=== PATIENT | female | born 1950 | race Caucasian/White ===

== ENCOUNTER 2020-03-08 14:17 | Outpatient (REF) | payer OTHER, SELFPAY | END 2020-03-08 14:18 | disposition home or self-care (01) | LOC: HO.LNP 14:17 | PROVIDERS: Visit Provider Internal Medicine Medical Oncology | DX: T14.8XXA Other injury of unspecified body region, initial encounter (principal) | CPT/HCPCS: 87071; 87205 ==

== ENCOUNTER 2020-09-19 08:03 | Outpatient (REF) | payer OTHER, SELFPAY ==
[2020-09-19 08:53] LABS: MANUAL DIFF FLAG NO
[2020-09-19 09:04] LABS: Basophils Absolute Auto 0.1 X10*3/uL (0.0-0.2); Basophils Percent Auto 0.8 % (0-2); Eosinophils Absolute Auto 0.4 X10*3/uL (0.0-0.4); Eosinophils Percent Auto 4.9 % (0-4); Hematocrit 39.3 % (37-47); Hemoglobin 12.8 g/dl (12.0-16.0); Imm Gran Abs Auto 0.03 X10*3/uL (0.00-0.03); Imm Gran Pct Auto 0.4 % (0.0-0.4); Lymphocytes Absolute Auto 2.3 X10*3/uL (1.2-4.9); Lymphocytes Percent Auto 30.3 % (20-40); Mean Corpuscular HGB Conc 32.6 g/dl (31.0-35.0); Mean Corpuscular Hemoglobin 30.8 pg (27.0-33.0); Mean Corpuscular Volume 94.7 fL (80-98); Mean Platelet Volume 11.1 fL (9.4-12.3); Monocytes Absolute Auto 0.5 X10*3/uL (0.1-1.2); Monocytes Percent Auto 6.4 % (2-11); Neutrophils Absolute Auto 4.3 X10*3/uL (2.0-8.3); Neutrophils Percent Auto 57.2 % (45-73); Platelet Count 238 X10*3/uL (160-400); Red Blood Count 4.15 X10*6/uL (4.20-5.50); Red Cell Distribution Width 13.4 % (11.0-16.0); White Blood Count 7.5 X10*3/uL (4.8-10.8)
[2020-09-19 09:23] LABS: Alanine Aminotransferase 32 U/L (0-31); Alkaline Phosphatase 85 U/L (39-117); Anion Gap 15 (12-20); Aspartate Amino Transferase 25 U/L (5-31); Bilirubin Total 0.5 mg/dL (0.0-1.0); Blood Urea Nitrogen 14 mg/dL (9-16); Calcium 8.9 mg/dL (8.4-10.2); Carbon Dioxide 25 mmol/L (22-29); Chloride 109 mmol/L (96-108); Cholesterol 220 mg/dL; Estimated Glomerular Filt Rate > 60; Glucose Fasting 123 mg/dL (60-99); HDL Cholesterol 64 mg/dL; LDL Cholesterol Calculated 138 mg/dl; Potassium 4.7 mmol/L (3.3-5.1); Sodium 144 mmol/L (135-145); Total Protein 6.1 g/dL (6.5-8.0); Triglycerides 93 mg/dL
== END 2020-09-19 08:04 | disposition home or self-care (01) ==
LOC: HO.LAB 08:03
PROVIDERS: PCP Internal Medicine Medical Oncology; Visit Provider Internal Medicine Medical Oncology
DX: M81.0 Age-related osteoporosis without current pathological fracture (principal); I10 Essential (primary) hypertension; E78.5 Hyperlipidemia, unspecified; Z78.0 Asymptomatic menopausal state
CPT/HCPCS: 36415; 80053; 80061; 85025

== ENCOUNTER 2020-10-10 10:38 | Outpatient (REF) | payer OTHER, SELFPAY ==
--- NOTE | ~2020-10-10 | XR_ITS ---
EXAMINATION: XR HIP, LEFT CLINICAL INFORMATION: Left hip pain. COMPARISON: None TECHNIQUE: AP view the pelvis as well as AP and frog-leg lateral views of the left hip. FINDINGS: No acute fracture or dislocation. Tiny right and left hip marginal osteophytes. Mild degenerative arthritis at the symphysis pubis. Phleboliths within the pelvis. No osseous erosion. XR/XR hip LT w PEL1V IMPRESSION: Minimal bilateral hip osteoarthritis.
== END 2020-10-10 10:39 | disposition home or self-care (01) ==
LOC: HO.XRAY 10:38
PROVIDERS: PCP Internal Medicine Medical Oncology; Visit Provider Internal Medicine Medical Oncology
DX: M25.552 Pain in left hip (principal); R10.2 Pelvic and perineal pain
CPT/HCPCS: 73502

== ENCOUNTER 2020-10-17 14:48 | Outpatient (REF) | payer OTHER, SELFPAY | END 2020-10-17 14:49 | disposition home or self-care (01) | LOC: HO.MRI 14:48 | PROVIDERS: PCP Internal Medicine Medical Oncology; Visit Provider Internal Medicine Medical Oncology | DX: Z13.89 Encounter for screening for other disorder (principal) ==

== ENCOUNTER → 2020-11-30 09:59 | Outpatient (BNVA) | payer OTHER, SELFPAY | PROVIDERS: Visit Provider Orthopaedic Surgery ==

== ENCOUNTER 2021-01-29 08:37 | Outpatient (REF) | payer MEDICARE, OTHER, SELFPAY ==
--- NOTE | ~2021-01-29 | XR_ITS ---
EXAMINATION: XR FOOT, RIGHT CLINICAL INFORMATION: Right foot pain COMPARISON: None TECHNIQUE: AP, lateral, and oblique views of the right foot. FINDINGS: No fracture or dislocation. Mild hypertrophic spurring at the Achilles insertion to the calcaneus. The bones appear osteopenic. Mild joint space narrowing at the first metatarsophalangeal joint with small osteophytes. No ankle joint effusion. The soft tissues appear unremarkable. XR/XR foot RT min 3V IMPRESSION: Osteopenia. Mild degenerative change at the first metatarsophalangeal joint.
[2021-01-29 08:55] LABS: MANUAL DIFF FLAG NO
[2021-01-29 09:10] LABS: Basophils Absolute Auto 0.1 X10*3/uL (0.0-0.2); Basophils Percent Auto 0.9 % (0-2); Eosinophils Absolute Auto 0.2 X10*3/uL (0.0-0.4); Eosinophils Percent Auto 3.5 % (0-4); Hematocrit 39.9 % (37.0-47.0); Hemoglobin 13.1 g/dl (12.0-16.0); Imm Gran Abs Auto 0.03 X10*3/uL (0.00-0.03); Imm Gran Pct Auto 0.4 % (0.0-0.4); Lymphocytes Absolute Auto 1.8 X10*3/uL (1.2-4.9); Lymphocytes Percent Auto 26.1 % (20-40); Mean Corpuscular HGB Conc 32.8 g/dl (31.0-35.0); Mean Corpuscular Hemoglobin 31.4 pg (27.0-33.0); Mean Corpuscular Volume 95.7 fL (80.0-98.0); Mean Platelet Volume 10.7 fL (9.4-12.3); Monocytes Absolute Auto 0.5 X10*3/uL (0.1-1.2); Monocytes Percent Auto 7.6 % (2-11); Neutrophils Absolute Auto 4.26 x10*3/uL (2.0-8.3); Neutrophils Percent Auto 61.5 % (45-73); Platelet Count 236 X10*3/uL (160-400); Red Blood Count 4.17 X10*6/uL (4.20-5.50); Red Cell Distribution Width 13.2 % (11.0-16.0); White Blood Count 6.9 X10*3/uL (4.8-10.8)
[2021-01-29 09:41] LABS: Alanine Aminotransferase 27 U/L (0-31); Albumin Level 4.1 g/dL (3.5-5.0); Alkaline Phosphatase 76 U/L (39-117); Anion Gap 11 (12-20); Aspartate Amino Transferase 20 U/L (5-31); Bilirubin Total 0.6 mg/dL (0.0-1.0); Blood Urea Nitrogen 15 mg/dL (9-16); Calcium 8.9 mg/dL (8.4-10.2); Carbon Dioxide 30 mmol/L (22-29); Chloride 106 mmol/L (96-108); Cholesterol 256 mg/dL; Estimated Glomerular Filt Rate > 60; Glucose Fasting 125 mg/dL (60-99); HDL Cholesterol 67 mg/dL; LDL Cholesterol Calculated 167 mg/dl; Potassium 4.3 mmol/L (3.3-5.1); Sodium 143 mmol/L (135-145); Total Protein 6.2 g/dL (6.5-8.0); Triglycerides 111 mg/dL
[2021-01-29 10:03] LABS: Free T4 (Free Thyroxine) 0.86 ng/dL (0.71-1.85); Thyroid Stimulating Hormone 1.33 uIU/mL (0.32-4.0)
[2021-01-29 10:26] LABS: Folate > 20.0 ng/mL (> or = 4.0); Vitamin B12 678 pg/mL (200-900)
== END 2021-01-29 08:38 | disposition home or self-care (01) ==
LOC: HO.XRAY 08:37
PROVIDERS: PCP Internal Medicine Medical Oncology; Visit Provider Internal Medicine Medical Oncology
DX: I10 Essential (primary) hypertension (principal); E78.5 Hyperlipidemia, unspecified; J45.20 Mild intermittent asthma, uncomplicated; M79.671 Pain in right foot; G11.9 Hereditary ataxia, unspecified
CPT/HCPCS: 36415; 73630; 80053; 80061; 82607; 82746; 84439; 84443; 85025

== ENCOUNTER 2021-08-14 08:16 | Outpatient (REF) | payer MEDICARE, OTHER, SELFPAY ==
[2021-08-14 08:33] LABS: MANUAL DIFF FLAG NO
[2021-08-14 08:56] LABS: Basophils Absolute Auto 0.1 X10*3/uL (0.0-0.2); Eosinophils Absolute Auto 0.3 X10*3/uL (0.0-0.4); Eosinophils Percent Auto 5.2 % (0-4); Hematocrit 40.6 % (37.0-47.0); Hemoglobin 12.9 g/dl (12.0-16.0); Imm Gran Abs Auto 0.03 X10*3/uL (0.00-0.03); Imm Gran Pct Auto 0.5 % (0.0-0.4); Lymphocytes Absolute Auto 1.7 X10*3/uL (1.2-4.9); Lymphocytes Percent Auto 28.3 % (20-40); Mean Corpuscular HGB Conc 31.8 g/dl (31.0-35.0); Mean Corpuscular Hemoglobin 30.9 pg (27.0-33.0); Mean Corpuscular Volume 97.4 fL (80.0-98.0); Mean Platelet Volume 10.9 fL (9.4-12.3); Monocytes Absolute Auto 0.4 X10*3/uL (0.1-1.2); Neutrophils Absolute Auto 3.6 x10*3/uL (2.0-8.3); Platelet Count 230 X10*3/uL (160-400); Red Blood Count 4.17 X10*6/uL (4.20-5.50); Red Cell Distribution Width 12.7 % (11.0-16.0); White Blood Count 6.2 X10*3/uL (4.8-10.8)
[2021-08-14 09:22] LABS: Alanine Aminotransferase 21 U/L (0-31); Alkaline Phosphatase 70 U/L (39-117); Anion Gap 11 (12-20); Aspartate Amino Transferase 17 U/L (5-31); Bilirubin Total 0.6 mg/dL (0.0-1.0); Blood Urea Nitrogen 15 mg/dL (9-16); Calcium 9.3 mg/dL (8.4-10.2); Carbon Dioxide 29 mmol/L (22-29); Chloride 107 mmol/L (96-108); Cholesterol 279 mg/dL; Estimated Glomerular Filt Rate > 60; Glucose Fasting 122 mg/dL (60-99); HDL Cholesterol 70 mg/dL; LDL Cholesterol Calculated 187 mg/dl; Potassium 4.6 mmol/L (3.3-5.1); Sodium 142 mmol/L (135-145); Total Protein 6.1 g/dL (6.5-8.0); Triglycerides 110 mg/dL
== END 2021-08-14 08:17 | disposition home or self-care (01) ==
LOC: HO.LAB 08:16
PROVIDERS: PCP Internal Medicine Medical Oncology; Visit Provider Internal Medicine Medical Oncology
DX: I10 Essential (primary) hypertension (principal); E66.9 Obesity, unspecified; E78.5 Hyperlipidemia, unspecified
CPT/HCPCS: 36415; 80053; 80061; 85025

== ENCOUNTER 2021-09-18 09:03 | Outpatient (REF) | payer MEDICARE, OTHER, SELFPAY ==
--- NOTE | ~2021-09-18 | MM_ITS ---
EXAMINATION: MM SCREENING DIGITAL BREAST TOMOSYNTHESIS, BILATERAL CLINICAL INFORMATION: Screening. Asymptomatic. The lifetime risk of breast cancer based on the Tyrer-Cuzick Model is 13%. COMPARISON: Outside mammography: 03/15/2020 ([facility]) TECHNIQUE: Digital breast tomosynthesis is performed in both the craniocaudal and mediolateral oblique views along with computer-aided detection (CAD). Synthesized 2D images are generated from the tomosynthesis. FINDINGS: The breasts are heterogeneously dense, which may obscure small masses (ACR BI-RADS breast composition Category c). Breast tissue composition borders on average fibroglandular. There is no significant mass or architectural abnormality or developing density. There are scattered benign punctate round calcifications. Left breast has interval loosely grouped relatively coarse calcifications mid upper outer quadrant. Patient will be recalled for additional imaging. The axilla and skin contours are unremarkable. MM/MM tomosynthesis screening BI IMPRESSION: Left: -Loosely grouped relatively coarse calcifications mid upper outer quadrant. Right: -No mammographic evidence of malignancy. ASSESSMENT: BI-RADS 0: Incomplete - Need Additional Imaging Evaluation RECOMMENDATION: 1. Additional views of the left breast (magnification CC, magnification ML). 2. Radiology department staff will contact the patient for additional imaging. This patient's information was entered into a reminder system with a target due date for their next mammogram.
== END 2021-09-18 09:04 | disposition home or self-care (01) ==
LOC: HO.MAMMO 09:03
PROVIDERS: PCP Internal Medicine Medical Oncology; Visit Provider Internal Medicine Medical Oncology
DX: Z12.31 Encounter for screening mammogram for malignant neoplasm of breast (principal)
CPT/HCPCS: 77063; 77067

== ENCOUNTER 2021-10-04 10:54 | Outpatient (REF) | payer MEDICARE, OTHER, SELFPAY ==
--- NOTE | ~2021-10-04 | MM_ITS ---
EXAMINATION: MM DIAGNOSTIC DIGITAL MAMMOGRAPHY, LEFT CLINICAL INFORMATION: Recall from screening for calcifications mid upper outer left breast. COMPARISON: Mammography: 09/18/2021, outside mammography 03/15/2020 ([facility]). TECHNIQUE: Digital mammography is performed in the following views: Magnification CC x2, magnification ML x2. FINDINGS: The breasts are heterogeneously dense, which may obscure small masses (ACR BI-RADS breast composition Category c). Additional magnification views show relatively coarse grouped calcifications mid upper outer left breast, possibly fibroadenomatous change. Management plan is for short interval follow-up left mammography to include magnification views in 6 months. Results are discussed with the patient at time of visit. MM/MM added views LT IMPRESSION: Probable benign relatively coarse grouped calcifications mid upper outer left breast, possibly fibroadenomatous change. ASSESSMENT: BI-RADS 3: Probably Benign RECOMMENDATION: Diagnostic left mammography in 6 months. This patient's information was entered into a reminder system with a target due date for their next mammogram.
== END 2021-10-04 10:55 | disposition home or self-care (01) ==
LOC: HO.MAMMO 10:54
PROVIDERS: Visit Provider Internal Medicine Medical Oncology
DX: R92.1 Mammographic calcification found on diagnostic imaging of breast (principal)
CPT/HCPCS: 77065

== ENCOUNTER 2021-10-09 08:06 | Outpatient (REF) | payer MEDICARE, OTHER, SELFPAY ==
[2021-10-09 08:23] LABS: MANUAL DIFF FLAG NO
[2021-10-09 09:03] LABS: Basophils Absolute Auto 0.1 X10*3/uL (0.0-0.2); Basophils Percent Auto 0.7 % (0-2); Eosinophils Absolute Auto 0.3 X10*3/uL (0.0-0.4); Eosinophils Percent Auto 4.6 % (0-4); Hematocrit 38.4 % (37.0-47.0); Hemoglobin 12.2 g/dl (12.0-16.0); Imm Gran Abs Auto 0.03 X10*3/uL (0.00-0.03); Imm Gran Pct Auto 0.4 % (0.0-0.4); Lymphocytes Absolute Auto 2.2 X10*3/uL (1.2-4.9); Mean Corpuscular HGB Conc 31.8 g/dl (31.0-35.0); Mean Corpuscular Hemoglobin 30.5 pg (27.0-33.0); Mean Platelet Volume 11.2 fL (9.4-12.3); Monocytes Absolute Auto 0.5 X10*3/uL (0.1-1.2); Monocytes Percent Auto 7.3 % (2-11); Neutrophils Absolute Auto 3.9 x10*3/uL (2.0-8.3); Platelet Count 214 X10*3/uL (160-400)
[2021-10-09 09:55] LABS: Alanine Aminotransferase 25 U/L (0-31); Albumin Level 3.9 g/dL (3.5-5.0); Alkaline Phosphatase 73 U/L (39-117); Anion Gap 10 (12-20); Aspartate Amino Transferase 18 U/L (5-31); Bilirubin Total 0.4 mg/dL (0.0-1.0); Blood Urea Nitrogen 14 mg/dL (9-16); Calcium 8.7 mg/dL (8.4-10.2); Carbon Dioxide 30 mmol/L (22-29); Chloride 106 mmol/L (96-108); Cholesterol 176 mg/dL; Estimated Glomerular Filt Rate > 60; Glucose Fasting 106 mg/dL (60-99); HDL Cholesterol 74 mg/dL; LDL Cholesterol Calculated 86 mg/dl; Potassium 4.3 mmol/L (3.3-5.1); Sodium 142 mmol/L (135-145); Total Protein 5.8 g/dL (6.5-8.0); Triglycerides 80 mg/dL
== END 2021-10-09 08:07 | disposition home or self-care (01) ==
LOC: HO.LAB 08:06
PROVIDERS: PCP Internal Medicine Medical Oncology; Visit Provider Internal Medicine Medical Oncology
DX: I10 Essential (primary) hypertension (principal); E78.5 Hyperlipidemia, unspecified; E66.9 Obesity, unspecified
CPT/HCPCS: 36415; 80053; 80061; 85025

== ENCOUNTER 2022-03-04 10:13 | Emergency (ER) | payer MEDICARE, OTHER, SELFPAY ==
--- NOTE | ~2022-03-04 | US_ITS ---
EXAMINATION: US VENOUS ULTRASOUND WITH DOPPLER LOWER EXTREMITY, LEFT CLINICAL INFORMATION: Left leg pain. COMPARISON: None TECHNIQUE: Ultrasound of the deep veins is performed from the hip to the calf with compression sonography and color and pulse Doppler assessment. Spectral analysis with color-flow imaging is performed. FINDINGS: There is normal venous compression and respiratory variation and augmented flow. The visualized common femoral vein, superficial femoral vein, profunda femoral vein, popliteal vein, and the trifurcation region shows no evidence of deep venous thrombosis. There is no significant popliteal fossa cyst. No Reynolds's cyst is seen. US/US venous duplex LE LT IMPRESSION: No DVT demonstrated in the left lower extremity.
--- NOTE | ~2022-03-04 | XR_ITS ---
EXAMINATION: XR KNEE, LEFT CLINICAL INFORMATION: Left knee pain COMPARISON: None TECHNIQUE: Four views of the left knee. FINDINGS: There is mild loss of patellofemoral compartment joint space. Medial and lateral compartment joint is preserved. There is anterior inferior patellar enthesophyte. No visible acute fracture, dislocation or subluxation seen. The soft tissues are normal. XR/XR knee LT 4V IMPRESSION: Mild degenerative changes patellofemoral compartment. No visible acute fracture or dislocation seen.
[2022-03-04 10:17] VITALS: BP 147/74; PULSE 76; RESP 18; TEMP 36.2; O2SAT 98; BMI 32.8
[2022-03-04 13:40] VITALS: BP 121/72; PULSE 73; RESP 16; O2SAT 99
--- NOTE | 2022-03-04 13:42 | ED_ITS ---
HPI - General Adult General Chief complaint: Extremity Injury, Lower <Mita Pena MD - Last Filed: 03/04/22 13:45> Stated complaint: l leg spasm pain <Mita Pena MD - Last Filed: 03/04/22 13:45> Time Seen by Provider: 03/04/22 14:18 <Mita Pena MD - Last Filed: 03/04/22 13:45> Source: patient <CELESTE Nicholson - Last Filed: 03/04/22 18:34> Mode of arrival: ambulatory <CELESTE Nicholson - Last Filed: 03/04/22 18:34> Limitations: no limitations <CELESTE Nicholson - Last Filed: 03/04/22 18:34> History of Present Illness HPI narrative: 71-year-old female presents to ED for left knee pain since . She states left knee pain radiating up thigh with tingling. Patient denies any swelling of the knee or lower extremity, recent trauma, ecchymosis, bluish/black discoloration, fever, chills, urinary/bowel incontinence, or inability to walk. Patient denies ever having any back pain. Patient denies any chest pain or shortness of breath. <CELESTE Nicholson - Last Filed: 03/04/22 18:34> Related Data Home medications: Home Medications Medication Instructions Recorded Confirmed lisinopril 2.5 mg tablet 2.5 mg PO DAILY 11/30/20 Previous Rx's Medication Instructions Recorded prednisone 20 mg tablet 40 mg PO DAILY 5 days #10 tabs 03/04/22 <Mita Pena MD - Last Filed: 03/04/22 13:45> Allergies/adverse reactions: Allergies Allergy/AdvReac Type Severity Reaction Status Date / Time furosemide [From LASIX] Allergy Mild RASH Verified 03/04/22 10:20 TAPE,PLASTIC Allergy Mild RASH Uncoded 03/04/22 10:20 <Mita Pena MD - Last Filed: 03/04/22 13:45> Review of Systems Review of Systems: left knee to left thigh pain <CELESTE Nicholson Last Filed: 03/04/22 18:34> Yes all other systems are reviewed and are negative <CELESTE Nicholson Last Filed: 03/04/22 18:34> [facility] Past Medical History Medical History: Medical History HTN (hypertension) <Mita Pena MD - Last Filed: 03/04/22 13:45> Social History Social History: Social History (Updated 11/30/20 @ 10:10 by VINICIO Myers) Alcohol intake: never Patient Tobacco Use Status: Never used Tobacco Advance Directives: No Advance Directives Information Provided: No Current occupational status: unemployed 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 <Mita Pena MD - Last Filed: 03/04/22 13:45> Physical Exam ED Vital Signs: Vital Signs - 24 hr 03/04/22 10:17 03/04/22 13:40 03/04/22 14:21 Temperature 97.1 F Pulse Rate 76 73 83 Respiratory Rate 18 16 20 Blood Pressure 147/74 H 121/72 117/76 Pulse Oximetry 98 99 97 Oxygen Delivery Method Room Air Room Air Room Air BMI result Body Mass Index 32.8 <Mita Pena MD - Last Filed: 03/04/22 13:45> Vital Signs - 24 hr 03/04/22 10:17 03/04/22 13:40 03/04/22 14:21 Temperature 97.1 F Pulse Rate 76 73 83 Respiratory Rate 18 16 20 Blood Pressure 147/74 H 121/72 117/76 Pulse Oximetry 98 99 97 Oxygen Delivery Method Room Air Room Air Room Air BMI result Body Mass Index 32.8 <CELESTE Nicholson - Last Filed: 03/04/22 18:34> Const General: cooperative, healthy appearing, comfortable, no acute distress, well developed, alert and awake <CELESTE Nicholson - Last Filed: 03/04/22 18:34> Orientation/consciousness: oriented to person, oriented to place, oriented to time and patient oriented x3 <CELESTE Nicholson Last Filed: 03/04/22 18:34> HENMT Head: Yes normal to inspection, Yes No palpable skull fracture present, Yes normocephalic, Yes atraumatic and No abrasion <CELESTE Nicholson Last Filed: 03/04/22 18:34> Eyes General: appearance normal, both eyes and all related structures <CELESTE Nicholson - Last Filed: 03/04/22 18:34> Neck Neck: Yes normal visual inspection, Yes full ROM, Yes no lymphadenopathy, Yes no meningeal signs, Yes trachea midline, Yes supple, No anterior neck swelling and No tender <CELESTE Nicholson Last Filed: 03/04/22 18:34> Chest Chest palpation & inspection: normal inspection of the chest and normal palpation of entire chest wall <CELESTE Nicholson Bull Last Filed: 03/04/22 18:34> Resp Effort & Inspection: normal respiratory effort and able to speak in complete sentences <CELESTE Nicholson Last Filed: 03/04/22 18:34> Auscultation: clear to auscultation bilaterally <CELESTE Nicholson Bull Last Filed: 03/04/22 18:34> Cardio Jugular venous distension: no JVD <CELESTE Nicholson Bull Last Filed: 03/04/22 18:34> Heart sounds: S1 normal heart sound present and S2 normal heart sound present <CELESTE Nicholson Last Filed: 03/04/22 18:34> GI Inspection: Yes normal to inspection and No abdominal wall ecchymosis <CELESTE Nicholson Bull Last Filed: 03/04/22 18:34> Palpation (GI): Soft to palpation, not firm, nontender, no guarding and not rigid <CELESTE Nicholson Last Filed: 03/04/22 18:34> General: No CVA tenderness and Yes no CVA tenderness <CELESTE Nicholson Bull Last Filed: 03/04/22 18:34> Back/Spine/Pelvis Back: no CVA tenderness, No CVA tenderness and No back tenderness <CELESTE Nicholson Last Filed: 03/04/22 18:34> Skin General skin exam: no rashes or lesions noted and elasticity normal <CELESTE Nicholson Bull Last Filed: 03/04/22 18:34> Neuro General: oriented to person, oriented to place, oriented to time, patient oriented x3, gait normal and no meningeal signs <CELESTE Nicholson Last Filed: 03/04/22 18:34> Cranial nerves: Yes CN's II-XII intact bilaterally <CELESTE Nicholson - Last Filed: 03/04/22 18:34> Extrem Other: Bilateral lower extremity motor/neuro/vascular exam intact. <CELESTE Nicholson Last Filed: 03/04/22 18:34> General: Yes normal to inspection and Yes full ROM <CELESTE Nicholson - Last Filed: 03/04/22 18:34> Knee images: 1. Positive for tenderness on palpation. Negative for erythema or stiffness. Popliteal pulses intact. Negative for cord on palpation of thigh. [id number] normal. Motor/neuro/vascular exam of lower extremities intact <Mita Pena MD - Last Filed: 03/04/22 13:45> 1. Positive for tenderness on palpation. Negative for erythema or stiffness. Popliteal pulses intact. Negative for cord on palpation of thigh. [id number] normal. Motor/neuro/vascular exam of lower extremities intact <CELESTE Nicholson - Last Filed: 03/04/22 18:34> Psych Appearance: grossly normal, well kempt and not disheveled <CELESTE Nicholson - Last Filed: 03/04/22 18:34> Course Course Course Narrative: 71F with atraumtic complaint of LLE pain that has been ongoing and had an appt with Dr Hoang. Pain gets better with Tylenol/Ibuprofen and she denies any fevers, chills, recent travel, falls. VS Reviewed GEN: Mild distress HEENT: NC/AT, EOMI/PERRLA, Ears wnl, throat wnl PULM: CTAB, no wheeze/rhonchi/rales CVS: RRR, no murmurs ABD: NT/ND Ext: no LEFT knee swelling or redness, no palpable cords - Labs, d-dimer <Mita Pena MD - Last Filed: 03/04/22 13:45> Reevaluation(s) Reevaluation #1: Knee x-ray shows arthritis. Ultrasound of lower extremity negative for DVT. Electrolytes normal. Negative for CPK rhabdomyolysis. History physical exam does not indicate cellulitis, arterial occlusion, compartment syndrome, fracture, or DVT. Patient already on Tylenol and Motrin. Will discharge with steroids. <CELESTE Nicholson Last Filed: 03/04/22 18:34> Time: 17:33 <CELESTE Nicholson Filed: 03/04/22 18:34> Medications Administered Discontinued Medications Generic Name Dose Route Start Last Admin Trade Name Freq PRN Reason Stop Dose Admin Acetaminophen 975 mg 03/04/22 13:40 03/04/22 13:43 Acetaminophen 325 Mg Tablet PO 03/04/22 13:41 975 mg ONCE ONE Administration Ibuprofen 400 mg 03/04/22 13:40 03/04/22 13:45 Ibuprofen 400 Mg Tablet PO 03/04/22 13:41 400 mg ONCE ONE Administration <Mita Pena MD - Last Filed: 03/04/22 13:45> Medications Administered Discontinued Medications Generic Name Dose Route Start Last Admin Trade Name Freq PRN Reason Stop Dose Admin Acetaminophen 975 mg 03/04/22 13:40 03/04/22 13:43 Acetaminophen 325 Mg Tablet PO 03/04/22 13:41 975 mg ONCE ONE Administration Ibuprofen 400 mg 03/04/22 13:40 03/04/22 13:45 Ibuprofen 400 Mg Tablet PO 03/04/22 13:41 400 mg ONCE ONE Administration <CELESTE Nicholson - Last Filed: 03/04/22 18:34> Medical Decision Making Medical Decision Making MDM Narrative: 8-year-old female with left knee and left thigh pain. Workup negative for DVT, knee fracture, rhabdomyolysis, or any electrolyte deficiency. History physical exam does not indicate cellulitis. Patient is safe for discharge. No need for admission. <CELESTE Nicholson - Last Filed: 03/04/22 18:34> Discharge Plan Discharge Clinical Impression: Arthritis <Mita Pena MD - Last Filed: 03/04/22 13:45> Patient Disposition: Home, Self-Care <Mita Pena MD - Last Filed: 03/04/22 13:45> Instructions: Osteoarthritis (ED), Arthritis (ED) <Mita Pena MD - Last Filed: 03/04/22 13:45> Additional Instructions: Your blood work, ultrasound, and x-ray came back negative for fracture, blood clot, rhabdomyolysis, or electrolyte deficiency. History physical exam does not indicate cellulitis or arterial occlusion. Will be discharged with steroids. Please follow-up with your primary care provider. Continue taking Tylenol Motrin and flexeril. Return to the ED immediately for swelling of lower extremity, bluish black discoloration, calf pain, leg swelling, hardness, coldness, chest pain, shortness of breath, fever, chills, or any other c oncerning symptoms. <Mita Pena MD - Last Filed: 03/04/22 13:45> Prescriptions: New prednisone 20 mg tablet 40 mg PO DAILY 5 Days Qty: 10 0RF <Mita Pena MD - Last Filed: 03/04/22 13:45> Referrals: Navid Ortiz MD [Primary Care Provider] - (Left knee arthritis.) <Mita Pena MD - Last Filed: 03/04/22 13:45> Print Language: Spanish <Mita Pena MD - Last Filed: 03/04/22 13:45>
[2022-03-04] MEDS: Acetaminophen 325 MG TABLET 975 MG PO (13:43)
[2022-03-04] MEDS: Ibuprofen 400 MG TABLET PO (13:45)
--- OUTSIDE RECORDS SUMMARY | 2022-03-04 14:17 | XMS_ITS | Continuity of Care Document ---
:1950 Author Organization [facility] Adult Address [address] [place] [address]- Care Team Providers Name Role Phone Inez Fowler NP Primary Care Physician Encounter [facility] Date(s): 11/08/19 - 12/08/19 [facility] Adult [address] [place] [phone] [facility] Allergies, Adverse Reactions, Alerts Substance Reaction Severity Status NKA Active Immunizations Given and Recorded Vaccine Date Status Refusal Reason tetanus/diphtheria/pertussis, acel(Tdap) 12/07/15 Given FluLaval (oldterm) 05/29/12 Given Medications Christal Allergy 60 mg oral tablet 1 tablet = 60 mg, By Mouth, 2 times a day, # 28 tablet, 0 Refills, Maintenance, 08/09/16 10:16:31, Tablet Start Date: 08/09/16 Stop Date: 08/23/16 Status: OrderedB-Plex Plus Vitamin B Complex oral tablet 1 tablet, By Mouth, Daily, # 100 tablet, 0 Refills, Maintenance, 11/10/13 13:50:50, Tablet Start Date: 11/10/13 Status: OrderedFlonase 50 mcg/inh nasal spray 1 sprays, Nares, Both, 2 times a day, # 1 each, 0 Refills, Maintenance, 08/09/16 10:16:58, [place], 1 sprays Nares, Both 2 times a day,x14 days Start Date: 08/09/16 Stop Date: 08/23/16 Status: Orderedibuprofen 800 mg oral tablet 800 mg, 1, tablet, By Mouth, 3 times a day, PRN, for 30 days, with food or milk, # 90 tablet, Refills 1, Tot. Refills 1, Acute 01/08/20 10:55:00 EDT, Pain, 11/09/19 10:55:00 EDT, Route to Pharmacy Electronically, [facility]/pharmacy #[id number], 162, cm, 05/13/19... Start Date: 11/09/19 Stop Date: 01/08/20 Status: Orderedketoconazole 2% topical cream 1 application, Topically, Daily, # 60 Gm, 1 Refills, Maintenance, 12/07/15 11:18:35, Cream, 1 application Topically Daily,x30 days Start Date: 12/07/15 Stop Date: 02/05/16 Status: Orderedlisinopril 40 mg oral tablet 1 tablet = 40 mg, By Mouth, Daily, # 90 tablet, 1 Refills, Maintenance, 11/19/19 9:32:00 EDT, Tablet, [facility]/pharmacy #[id number], 162, cm, 05/13/19 11:11:00 EST, Height Start Date: 11/19/19 Stop Date: 05/17/20 Status: OrderedpredniSONE 20 mg oral tablet 1 tablet = 20 mg, By Mouth, Daily, # 5 tablet, 0 Refills, Maintenance, 10/18/19 17:35:00 EDT, Tablet, [facility]/pharmacy #[id number], 162, cm, 05/13/19 11:11:00 EST, Height Start Date: 10/18/19 Stop Date: 10/23/19 Status: OrderedVitamin D3 1000 intl units oral capsule 1 capsule = 1,000 International_Units, By Mouth, Daily, # 100 capsule, 0 Refills, Maintenance, 11/10/13 13:50:36, Capsule Start Date: 11/10/13 Status: OrderedVitamin D3 50,000 intl units oral capsule 1 capsule = 50,000 International_Units, By Mouth, Every week, # 13 capsule, 3 Refills, Maintenance, 07/12/14 13:31:47, Capsule, 1 capsule By Mouth Every week,x90 days Start Date: 07/12/14 Stop Date: 07/07/15 Status: Ordered Problem List Condition Effective Dates Status Health Status Informant Acute gingivitis(Confirmed) Active Hypertension(Confirmed) Active Osteoarthritis of ankle or foot, Active right(Confirmed) Osteoarthritis of left hip(Confirmed) Active Social History Social History Type Response Smoking Status Never smoker entered on: 11/29/14 Sex
--- OUTSIDE RECORDS SUMMARY | 2022-03-04 14:17 | XMS_ITS | Continuity of Care Document ---
:1950 Author Organization [facility] Adult Address [address] [place] [address]- Care Team Providers Name Role Phone Inez Fowler NP Primary Care Physician Encounter [facility] Date(s): 06/23/20 - 07/23/20 [facility] [address] [place] [id number]- Attending Physician: Josh Lake Admitting Physician: AdmtrJosh Referring Physician: Admtr, [id number] Allergies, Adverse Reactions, Alerts Substance Reaction Severity Status NKA Active Immunizations Given and Recorded Vaccine Date Status Refusal Reason Influenza Virus Vaccine (oldterm)1 12/10/19 Recorded tetanus/diphtheria/pertussis, acel(Tdap) 12/07/15 Given FluLaval (oldterm) 05/29/12 Given 1Result Comment: received at [facility] Medications Christal Allergy 60 mg oral tablet [...] 1 each, 0 Refills, Maintenance, 08/09/16 10:16:58, [place], 1 sprays Nares, Both 2 times a day,x14 days Start Date: 08/09/16 Stop Date: 08/23/16 Status: Orderedketoconazole 2% topical cream 1 application, Topically, Daily, # 60 Gm, 1 Refills, Maintenance, 12/07/15 11:18:35, Cream, 1 application Topically Daily,x30 days Start Date: 12/07/15 Stop Date: 02/05/16 Status: Orderedlisinopril 40 mg oral tablet 1 tablet = 40 mg, By Mouth, Daily, # 90 tablet, 0 Refills, Maintenance, 05/18/20 13:09:00 EST, Tablet, [facility]/pharmacy #[id number], 162, cm, 05/13/19 11:11:00 EST, Height Start Date: 05/18/20 Stop Date: 08/16/20 Status: OrderedpredniSONE 20 mg oral tablet 1 tablet = 20 mg, By Mouth, Daily, # 5 tablet, 0 Refills, Maintenance, 10/18/19 17:35:00 EDT, Tablet, [facility]/pharmacy #[id number], 162, cm, 05/13/19 11:11:00 EST, Height [...]
--- OUTSIDE RECORDS SUMMARY | 2022-03-04 14:17 | XMS_ITS | Continuity of Care Document ---
:1950 Author Organization [facility] Adult Address [address] [place] [address]- Care Team Providers Name Role Phone Janeth LYNNE, Inez Primary Care Physician Encounter [facility] Date(s): 11/07/19 - 12/07/19 [facility] Adult [address] [place] [phone]- [facility] Allergies, Adverse Reactions, Alerts Substance [...] 1 each, 0 Refills, Maintenance, 08/09/16 10:16:58, [place], 1 sprays Nares, Both 2 times a day,x14 days Start Date: 08/09/16 Stop Date: 08/23/16 Status: Orderedibuprofen 800 mg oral tablet 800 mg, 1, tablet, By Mouth, 3 times a day, PRN, for 30 days, with food or milk, # 90 tablet, Refills 1, Tot. Refills 1, Acute 01/08/20 10:55:00 EDT, Pain, 11/09/19 10:55:00 EDT, Route to Pharmacy Electronically, [facility]/pharmacy #[id number], 162, cm, 05/13/19... Start Date: 11/09/19 Stop Date: 01/08/20 Status: Orderedketoconazole 2% topical cream 1 application, Topically, Daily, # 60 Gm, 1 Refills, Maintenance, 12/07/15 11:18:35, Cream, 1 application Topically Daily,x30 days Start Date: 12/07/15 Stop Date: 02/05/16 Status: Orderedlisinopril 40 mg oral tablet 1 tablet = 40 mg, By Mouth, Daily, # 90 tablet, 1 Refills, Maintenance, 11/19/19 9:32:00 EDT, Tablet, [facility]/pharmacy #[id number], 162, cm, 05/13/19 11:11:00 EST, Height Start Date: 11/19/19 Stop Date: 05/17/20 Status: OrderedpredniSONE 20 mg oral tablet 1 tablet = 20 mg, By Mouth, Daily, # 5 tablet, 0 Refills, Maintenance, 10/18/19 17:35:00 EDT, Tablet, [facility]/pharmacy #[id number], 162, cm, 05/13/19 11:11:00 EST, Height [...]
--- OUTSIDE RECORDS SUMMARY | 2022-03-04 14:17 | XMS_ITS | Continuity of Care Document ---
:1950 Author Organization [facility] Adult Address [address] [place] [address]- Care Team Providers Name Role Phone Inez Fowler NP Primary Care Physician Encounter [facility] Date(s): 07/17/19 - 11/12/19 [facility] Adult [address] [place] [phone] [facility] Attending Physician: Not on Staff, Attending MD Allergies, Adverse Reactions, Alerts Substance Reaction Severity [...] 1 each, 0 Refills, Maintenance, 08/09/16 10:16:58, [place], 1 sprays Nares, Both 2 times a day,x14 days Start Date: 08/09/16 Stop Date: 08/23/16 Status: Orderedibuprofen 800 mg oral tablet 800 mg, 1, tablet, By Mouth, 3 times a day, PRN, for 30 days, with food or milk, # 90 tablet, Refills 1, Tot. Refills 1, Acute 01/08/20 10:55:00 EDT, Pain, 11/09/19 10:55:00 EDT, Route to Pharmacy Electronically, [facility]/pharmacy #[id number], 162, cm, 05/13/19... Start Date: 11/09/19 Stop Date: 01/08/20 Status: Orderedketoconazole 2% topical cream 1 application, Topically, Daily, # 60 Gm, 1 Refills, Maintenance, 12/07/15 11:18:35, Cream, 1 application Topically Daily,x30 days Start Date: 12/07/15 Stop Date: 02/05/16 Status: Orderedlisinopril 40 mg oral tablet 1 tablet = 40 mg, By Mouth, Daily, # 90 tablet, 1 Refills, Maintenance, 05/16/19 15:38:00 EST, Tablet, [facility]/pharmacy #[id number], 162, cm, 05/13/19 11:11:00 EST, Height Start Date: 05/16/19 Stop Date: 11/12/19 Status: OrderedpredniSONE 20 mg oral tablet 1 tablet = 20 mg, By Mouth, Daily, # 5 tablet, 0 Refills, Maintenance, 10/18/19 17:35:00 EDT, Tablet, [facility]/pharmacy #[id number], 162, cm, 05/13/19 11:11:00 EST, Height [...]
--- OUTSIDE RECORDS SUMMARY | 2022-03-04 14:17 | XMS_ITS | Continuity of Care Document ---
:1950 Author Organization [facility] Adult Address [address] [place] [address]- Care Team Providers Name Role Phone Inez Fowler NP Primary Care Physician Encounter [facility] Date(s): 01/03/20 - 02/02/20 [facility] Adult [address] [place] [phone] [facility] Allergies, Adverse Reactions, Alerts Substance Reaction Severity Status NKA Active Immunizations Given and Recorded Vaccine Date Status Refusal Reason Influenza Virus Vaccine (oldterm)1 12/10/19 Recorded tetanus/diphtheria/pertussis, acel(Tdap) 12/07/15 Given FluLaval (oldterm) 05/29/12 Given 1Result Comment: received at [facility] Medications Christal Allergy 60 mg oral tablet [...] 1 each, 0 Refills, Maintenance, 08/09/16 10:16:58, [place], 1 sprays Nares, Both 2 times a [...] 1 Refills, Maintenance, 11/19/19 9:32:00 EDT, Tablet, [facility]/pharmacy #[id number], 162, cm, 05/13/19 11:11:00 EST, Height Start Date: 11/19/19 Stop Date: 05/17/20 Status: OrderedpredniSONE 20 mg oral tablet 1 tablet = 20 mg, By Mouth, Daily, # 5 tablet, 0 Refills, Maintenance, 10/18/19 17:35:00 EDT, Tablet, [facility]/pharmacy #[id number], 162, cm, 05/13/19 11:11:00 EST, Height [...]
--- OUTSIDE RECORDS SUMMARY | 2022-03-04 14:17 | XMS_ITS | Continuity of Care Document ---
:1950 Author Organization [facility] Adult Address [address] [place] [address]- Care Team Providers Name Role Phone Inez Fowler NP Primary Care Physician [place] [facility] [place] Date(s): 01/03/20 - 02/02/20 [facility] Adult [address] [place] [address]- [facility] Allergies, Adverse Reactions, Alerts Substance Reaction Severity Status NKA Active Immunizations Given and Recorded Vaccine Date Status Refusal Reason Influenza Virus Vaccine (oldterm)1 12/10/19 Recorded tetanus/diphtheria/pertussis, acel(Tdap) 12/07/15 Given FluLaval (oldterm) 05/29/12 Given 1Result Comment: received at [facility] Medications Christal Allergy 60 mg oral tablet [...] 1 each, 0 Refills, Maintenance, 08/09/16 10:16:58, [place], 1 sprays Nares, Both 2 times a [...] 1 Refills, Maintenance, 11/19/19 9:32:00 EDT, Tablet, [facility]/pharmacy #[id number], 162, cm, 05/13/19 11:11:00 EST, Height Start Date: 11/19/19 Stop Date: 05/17/20 Status: OrderedpredniSONE 20 mg oral tablet 1 tablet = 20 mg, By Mouth, Daily, # 5 tablet, 0 Refills, Maintenance, 10/18/19 17:35:00 EDT, Tablet, [facility]/pharmacy #[id number], 162, cm, 05/13/19 11:11:00 EST, Height [...]
--- OUTSIDE RECORDS SUMMARY | 2022-03-04 14:18 | XMS_ITS | Continuity of Care Document ---
:1950 Author Organization [facility] Adult Address [address] [place] [address]- Care Team Providers Name Role Phone Inez Fowler NP Primary Care Physician Encounter [facility] [place] Date(s): 05/13/19 - 05/20/19 [facility] Adult [address] [place] [address]- [facility] Attending Physician: Not [...] 1 each, 0 Refills, Maintenance, 08/09/16 10:16:58, [place], 1 sprays Nares, Both 2 times a day,x14 days Start Date: 08/09/16 Stop Date: 08/23/16 Status: Orderedibuprofen 800 mg oral tablet 800 mg, 1, tablet, By Mouth, 3 times a day, PRN, for 30 days, with food or milk, # 90 tablet, Refills 1, Tot. Refills 1, Acute 07/13/19 13:48:00 EDT, Pain, 05/14/19 13:48:00 EST, Route to Pharmacy Electronically, [facility]/pharmacy #[id number], 162, cm, 05/13/19... Start Date: 05/14/19 Stop Date: 07/13/19 Status: Orderedketoconazole 2% topical cream 1 application, Topically, Daily, # 60 Gm, 1 Refills, Maintenance, 12/07/15 11:18:35, Cream, 1 application Topically Daily,x30 days Start Date: 12/07/15 Stop Date: 02/05/16 Status: Orderedlisinopril 40 mg oral tablet 1 tablet = 40 mg, By Mouth, Daily, # 90 tablet, 1 Refills, Maintenance, 05/16/19 15:38:00 EST, Tablet, [facility]/pharmacy #[id number], 162, cm, 05/13/19 11:11:00 EST, Height Start Date: 05/16/19 Stop Date: 11/12/19 Status: OrderedVitamin D3 1000 intl units oral [...] Active right(Confirmed) Osteoarthritis of left hip(Confirmed) Active Vital Signs Most recent to oldest [Reference Range]: 1 Height 162.0 cm (05/13/19 11:11 AM) Weight 96.3 kg (05/13/19 11:11 AM) Oxygen Saturation [94-100 %] 98 % (05/13/19 11:11 AM) Pulse Rate [55-90 bpm] 99 bpm *H* (05/13/19 11:11 AM) Body Mass Index [18.5-24.99] 36.69 *>HHI* (05/13/19 11:11 AM) Blood Pressure [90-138/55-84 mm Hg] 130/62 mm Hg (05/13/19 11:11 AM) Blood pressure sites Arm, left (05/13/19 11:11 AM) Temperature Route Oral (05/13/19 11:11 AM) Weight Obtained Via Standing scale (05/13/19 11:11 AM) Social History Social History Type Response Smoking Status Never smoker entered on: 11/29/14 Sex
--- OUTSIDE RECORDS SUMMARY | 2022-03-04 14:18 | XMS_ITS | Continuity of Care Document ---
:1950 Author Organization [facility] Address [address] [place] [phone]- Care Team Providers Name Role Phone Janeth LYNNE, Inez Primary Care Physician [place] [facility] [place] 05/13/[address] [address]- [facility] Attending Physician: Not on Staff, Attending MD [...] 1 each, 0 Refills, Maintenance, 08/09/16 10:16:58, [place], 1 sprays Nares, Both 2 times a day,x14 days Start Date: 08/09/16 Stop Date: 08/23/16 Status: Orderedketoconazole 2% topical cream 1 application, Topically, Daily, # 60 Gm, 1 Refills, Maintenance, 12/07/15 11:18:35, [place], 1 application Topically Daily,x30 days Start Date: 12/07/15 Stop Date: 02/05/16 Status: Orderedlisinopril 20 mg oral tablet 20 mg, 1, tablet, By Mouth, Daily, # 30 tablet, Refills 5, Tot. Refills 5, Maintenance, 02/26/17 21:09:52, Route to Pharmacy Electronically, [id number], [facility] [id number] Start Date: 02/26/17 Stop Date: 08/25/17 Status: OrderedVitamin D3 1000 intl units oral [...]
--- OUTSIDE RECORDS SUMMARY | 2022-03-04 14:18 | XMS_ITS | Continuity of Care Document ---
:1950 Author Organization [facility] Adult Address [address] [place] [address]- Care Team Providers Name Role Phone Inez Fowler NP Primary Care Physician Encounter [facility] [place] Date(s): 11/01/19 - 12/01/19 [facility] Adult [address] [place] [phone]- [facility] Allergies, Adverse Reactions, Alerts Substance [...] 1 each, 0 Refills, Maintenance, 08/09/16 10:16:58, [place], 1 sprays Nares, Both 2 times a day,x14 days Start Date: 08/09/16 Stop Date: 08/23/16 Status: Orderedibuprofen 800 mg oral tablet 800 mg, 1, tablet, By Mouth, 3 times a day, PRN, for 30 days, with food or milk, # 90 tablet, Refills 1, Tot. Refills 1, Acute 01/08/20 10:55:00 EDT, Pain, 11/09/19 10:55:00 EDT, Route to Pharmacy Electronically, [facility]/pharmacy #[id number], 162, cm, 05/13/19... Start Date: 11/09/19 Stop Date: 01/08/20 Status: Orderedketoconazole 2% topical cream 1 application, Topically, Daily, # 60 Gm, 1 Refills, Maintenance, 12/07/15 11:18:35, [place], 1 application Topically Daily,x30 days Start Date: 12/07/15 Stop Date: 02/05/16 Status: Orderedlisinopril 40 mg oral tablet 1 tablet = 40 mg, By Mouth, Daily, # 90 tablet, 1 Refills, Maintenance, 11/19/19 9:32:00 EDT, Tablet, [facility]/pharmacy #[id number], 162, cm, 05/13/19 11:11:00 EST, Height Start Date: 11/19/19 Stop Date: 05/17/20 Status: OrderedpredniSONE 20 mg oral tablet 1 tablet = 20 mg, By Mouth, Daily, # 5 tablet, 0 Refills, Maintenance, 10/18/19 17:35:00 EDT, Tablet, [facility]/pharmacy #[id number], 162, cm, 05/13/19 11:11:00 EST, [...]
--- OUTSIDE RECORDS SUMMARY | 2022-03-04 14:18 | XMS_ITS | Continuity of Care Document ---
:1950 Author Organization [facility] Adult Address [address] [place] [address]- Care Team Providers Name Role Phone Inez Fowler NP Primary Care Physician Encounter [facility] [place] Date(s): 05/18/20 - 07/23/20 [facility] Adult [address] [place] [address]- Attending Physician: Inez Fowler NP Allergies, Adverse Reactions, Alerts Substance Reaction Severity Status NKA Active Immunizations Given and Recorded Vaccine Date Status Refusal Reason Influenza Virus Vaccine (oldterm)1 12/10/19 Recorded tetanus/diphtheria/pertussis, acel(Tdap) 12/07/15 Given FluLaval (oldterm) 05/29/12 Given 1Result Comment: received at [facility] Medications Christal Allergy 60 mg oral [...] 1 each, 0 Refills, Maintenance, 08/09/16 10:16:58, [place], 1 sprays Nares, Both 2 times a [...] 0 Refills, Maintenance, 05/18/20 13:09:00 EST, Tablet, [facility]/pharmacy #[id number], 162, cm, 05/13/19 11:11:00 EST, Height Start Date: 05/18/20 Stop Date: 08/16/20 Status: OrderedpredniSONE 20 mg oral tablet 1 tablet = 20 mg, By Mouth, Daily, # 5 tablet, 0 Refills, Maintenance, 10/18/19 17:35:00 EDT, Tablet, [facility]/pharmacy #[id number], 162, cm, 05/13/19 11:11:00 EST, [...]
--- OUTSIDE RECORDS SUMMARY | 2022-03-04 14:18 | XMS_ITS | Continuity of Care Document ---
:1950 Author Organization [facility] Adult Address [address] [place] [address]- Care Team Providers Name Role Phone Janeth LYNNE, Inez Primary Care Physician [place] [facility] [place] 06/[place]/19 [facility] Adult [address] [place] [address]- [facility] Attending Physician: Gigi Morgan MD Allergies, Adverse Reactions, Alerts Substance Reaction [...] 1 each, 0 Refills, Maintenance, 08/09/16 10:16:58, [place], 1 sprays Nares, Both 2 times a day,x14 days Start Date: 08/09/16 Stop Date: 08/23/16 Status: Orderedibuprofen 800 mg oral tablet 800 mg, 1, tablet, By Mouth, 3 times a day, PRN, for 30 days, with food or milk, # 90 tablet, Refills 1, Tot. Refills 1, Acute 07/13/19 13:48:00 EDT, Pain, 05/14/19 13:48:00 EST, Route to Pharmacy Electronically, [facility]/pharmacy #[id number], 162, cm, 05/13/19... Start Date: 05/14/19 Stop Date: 07/13/19 Status: Orderedketoconazole 2% topical cream 1 application, Topically, Daily, # 60 Gm, 1 Refills, Maintenance, 12/07/15 11:18:35, Cream, 1 application Topically Daily,x30 days Start Date: 12/07/15 Stop Date: 02/05/16 Status: Orderedlisinopril 40 mg oral tablet 1 tablet = 40 mg, By Mouth, Daily, # 90 tablet, 1 Refills, Maintenance, 05/16/19 15:38:00 EST, Tablet, [facility]/pharmacy #[id number], 162, cm, 05/13/19 11:11:00 [...]
--- OUTSIDE RECORDS SUMMARY | 2022-03-04 14:18 | XMS_ITS | Continuity of Care Document ---
:1950 Author Organization [facility] Adult Address [address] [place] [address]- Care Team Providers Name Role Phone Janeth LYNNE, Inez Primary Care Physician En[place] [facility] [place] Date(s): 05/18/20 - 06/17/20 [facility] Adult [address] [place] [address]- Allergies, Adverse Reactions, Alerts Substance Reaction Severity [...] 1 each, 0 Refills, Maintenance, 08/09/16 10:16:58, [place], 1 sprays Nares, Both 2 times a [...] 0 Refills, Maintenance, 05/18/20 13:09:00 EST, Tablet, [facility]/pharmacy #[id number], 162, cm, [...]
--- OUTSIDE RECORDS SUMMARY | 2022-03-04 14:18 | XMS_ITS | Continuity of Care Document ---
:1950 Author Organization [facility] Adult Address [address] [place] [address]- Care Team Providers Name Role Phone Janeth LYNNE, Inez Primary Care Physician [place] [facility] [place] 10/18[place]19 - 11/17/19 [facility] Adult [address] [place] [address]- [facility] Allergies, Adverse Reactions, Alerts Substance [...] 1 each, 0 Refills, Maintenance, 08/09/16 10:16:58, [place], 1 sprays Nares, Both 2 times a day,x14 days Start Date: 08/09/16 Stop Date: 08/23/16 Status: Orderedibuprofen 800 mg oral tablet 800 mg, 1, tablet, By Mouth, 3 times a day, PRN, for 30 days, with food or milk, # 90 tablet, Refills 1, Tot. Refills 1, Acute 01/08/20 10:55:00 EDT, Pain, 11/09/19 10:55:00 EDT, Route to Pharmacy Electronically, [facility]/pharmacy #[id number], 162, cm, 05/13/19... Start Date: 11/09/19 Stop Date: 01/08/20 Status: Orderedketoconazole 2% topical cream 1 application, Topically, Daily, # 60 Gm, 1 Refills, Maintenance, 12/07/15 11:18:35, Cream, 1 application Topically Daily,x30 days Start Date: 12/07/15 Stop Date: 02/05/16 Status: Orderedlisinopril 40 mg oral tablet 1 tablet = 40 mg, By Mouth, Daily, # 90 tablet, 1 Refills, Maintenance, 05/16/19 15:38:00 EST, Tablet, [facility]/pharmacy #[id number], 162, cm, 05/13/19 11:11:00 EST, Height Start Date: 05/16/19 Stop Date: 11/12/19 Status: OrderedpredniSONE 20 mg oral tablet 1 tablet = 20 mg, By Mouth, Daily, # 5 tablet, 0 Refills, Maintenance, 10/18/19 17:35:00 EDT, Tablet, [facility]/pharmacy #[id number], 162, cm, 05/13/19 11:11:00 EST, [...]
--- OUTSIDE RECORDS SUMMARY | 2022-03-04 14:18 | XMS_ITS | Continuity of Care Document ---
:1950 Author Organization [facility] Adult Address [address] [place] [address]- Care Team Providers Name Role Phone Inez Fowler NP Primary Care Physician [place] [facility] [place](s): 10/13/19 - 11/12/19 [facility] Adult [address] [place] [address]- [facility] Attending Physician: Admtr, Josh Admitting Physician: Admtr, Ar8 Referring Physician: Admtr, Ar8 Allergies, Adverse Reactions, Alerts Substance Reaction Severity [...] 1 each, 0 Refills, Maintenance, 08/09/16 10:16:58, [place], 1 sprays Nares, Both 2 times a day,x14 days Start Date: 08/09/16 Stop Date: 08/23/16 Status: Orderedibuprofen 800 mg oral tablet 800 mg, 1, tablet, By Mouth, 3 times a day, PRN, for 30 days, with food or milk, # 90 tablet, Refills 1, Tot. Refills 1, Acute 01/08/20 10:55:00 EDT, Pain, 11/09/19 10:55:00 EDT, Route to Pharmacy Electronically, [facility]/pharmacy #[id number], 162, cm, 05/13/19... Start Date: [...] Refills, Maintenance, 05/16/19 15:38:00 EST, Tablet, [facility]/pharmacy #[id number], 162, cm, 05/13/19 11:11:00 EST, Height Start Date: 05/16/19 Stop Date: 11/12/19 Status: OrderedpredniSONE 20 mg oral tablet 1 tablet = 20 mg, By Mouth, Daily, # 5 tablet, 0 Refills, Maintenance, 10/18/19 17:35:00 EDT, Tablet, [facility]/pharmacy #[id number], 162, cm, 05/13/19 11:11:00 EST, [...]
[2022-03-04 14:21] VITALS: BP 117/76; PULSE 83; RESP 20; O2SAT 97
[2022-03-04 14:52] LABS: Basophils Percent Auto 0.6 % (0-2); Eosinophils Absolute Auto 0.2 X10*3/uL (0.0-0.4); Eosinophils Percent Auto 2.7 % (0-4); Hematocrit 38.7 % (37.0-47.0); Hemoglobin 12.6 g/dl (12.0-16.0); Imm Gran Abs Auto 0.02 X10*3/uL (0.00-0.03); Imm Gran Pct Auto 0.3 % (0.0-0.4); Lymphocytes Percent Auto 29.5 % (20-40); MANUAL DIFF FLAG SCAN; Mean Corpuscular HGB Conc 32.6 g/dl (31.0-35.0); Mean Corpuscular Volume 95.1 fL (80.0-98.0); Mean Platelet Volume 10.7 fL (9.4-12.3); Monocytes Absolute Auto 0.4 X10*3/uL (0.1-1.2); Neutrophils Absolute Auto 4.1 x10*3/uL (2.0-8.3); Neutrophils Percent Auto 60.9 % (45-73); PLT CLUMP 1; Red Blood Count 4.07 X10*6/uL (4.20-5.50); Red Cell Distribution Width 13.2 % (11.0-16.0); SCAN SMEAR FLAG 1
[2022-03-04 15:13] LABS: Alanine Aminotransferase 27 U/L (0-31); Alkaline Phosphatase 67 U/L (39-117); Anion Gap 12 (12-20); Aspartate Amino Transferase 20 U/L (5-31); Blood Urea Nitrogen 16 mg/dL (9-16); Carbon Dioxide 26 mmol/L (22-29); Chloride 108 mmol/L (96-108); Creatinine Clr Calc Pharmacy 94.9; Estimated Glomerular Filt Rate > 60; Glucose Random 98 mg/dL (60-115); Magnesium 2.3 mg/dL (1.6-2.6); Potassium 4.4 mmol/L (3.3-5.1); Sodium 142 mmol/L (135-145); Total Protein 6.1 g/dL (6.5-8.0)
[2022-03-04 15:17] LABS: White Blood Count 6.7 X10*3/uL (4.8-10.8)
[2022-03-04 15:18] LABS: Platelet Count 158 X10*3/uL (160-400); SLIDE REVIEW VERIFIED
[2022-03-04 15:20] LABS: Bilirubin Total 0.5 mg/dL (0.0-1.0)
[2022-03-04 15:50] LABS: INTERNATIONAL NORM RATIO 0.9 (0.9-1.1); Prothrombin Time 10.8 SEC (10.0-13.1)
[2022-03-04 15:53] LABS: Partial Thromboplastin Time 26.8 SEC (26.0-36.4)
== END 2022-03-04 19:02 | disposition home or self-care (01) ==
PROVIDERS: Physician Assistant; Student in an Organized Health Care Education/Training Program; Emergency Provider Emergency Medicine; PCP Internal Medicine Medical Oncology
DX: M17.12 Unilateral primary osteoarthritis, left knee (principal); R60.0 Localized edema; M79.605 Pain in left leg; Z79.899 Other long term (current) drug therapy
CPT/HCPCS: 36415; 73564; 80053; 82550; 83735; 85025; 85610; 85730; 93971; 99283; 99284

== ENCOUNTER 2022-05-31 14:16 | Outpatient (REF) | payer MEDICARE, OTHER, SELFPAY ==
--- NOTE | ~2022-05-31 | MM_ITS ---
EXAMINATION: MM DIAGNOSTIC DIGITAL BREAST TOMOSYNTHESIS, LEFT CLINICAL INFORMATION: Six-month follow-up calcifications left breast. The lifetime risk of breast cancer based on the Tyrer-Cuzick Model is 13%. COMPARISON: Mammography: 10/04/2021, 09/18/2021, and 03/15/2020. TECHNIQUE: Digital breast tomosynthesis is performed in both the craniocaudal and mediolateral oblique views along with computer-aided detection (CAD). Synthesized 2D images are generated from the tomosynthesis. Additional spot magnification views in craniocaudal and 90 degree mediolateral views performed as well as a craniocaudal spot compression view laterally for question density. FINDINGS: The breasts are heterogeneously dense, which may obscure small masses (ACR BI-RADS breast composition Category c). No suspicious change of the calcifications about the upper outer aspect of the left breast are appreciated since previous study. There was question of a new asymmetric density laterally for which spot compression view demonstrated to represent superimposition of dense breast parenchyma. 6 month bilateral mammography suggested with spot magnification views of the left breast for calcifications. Results are provided to the patient at time of visit by the technologist. MM/MM tomosynthesis diagnostic LT IMPRESSION: There are no significant changes from prior study. ASSESSMENT: BI-RADS 3: Probably Benign RECOMMENDATION: Diagnostic mammography in 6 months. This patient's information was entered into a reminder system with a target due date for their next mammogram.
== END 2022-05-31 14:17 | disposition home or self-care (01) ==
LOC: HO.MAMMO 14:16
PROVIDERS: PCP Internal Medicine Medical Oncology; Visit Provider Internal Medicine Medical Oncology
DX: R92.1 Mammographic calcification found on diagnostic imaging of breast (principal)
CPT/HCPCS: 77061; 77065

== ENCOUNTER 2022-11-08 09:31 | Outpatient (REF) | payer MEDICARE, OTHER, SELFPAY ==
--- NOTE | ~2022-11-08 | XR_ITS ---
EXAMINATION: XR PELVIS CLINICAL INFORMATION: Pain COMPARISON: None available. TECHNIQUE: AP view of the pelvis. FINDINGS: There is narrowing of the left hip joint is mild subchondral sclerosis in the left acetabulum. The right hip is unremarkable. Sacroiliac joints are normal. Soft tissues are normal. XR/XR pelvis 1-2V IMPRESSION: Degenerative changes in the left hip joint
== END 2022-11-08 09:32 | disposition home or self-care (01) ==
LOC: HO.HOSX 09:31
PROVIDERS: Visit Provider Orthopaedic Surgery
DX: M16.12 Unilateral primary osteoarthritis, left hip (principal)
CPT/HCPCS: 72170; 99212

== ENCOUNTER 2022-11-08 10:44 | Outpatient (AMB) | payer MEDICARE, SELFPAY ==
--- NOTE | 2022-11-08 10:53 | MHC.OFFVIS ---
Intake Intake Visit Reasons: OV- Lt hip pain Intake Note: Mita is a 71 year old female who presents today for a follow up of her left hip. Patient reports that she did attend PT which did not help. She explains that this pain has been present for some time now and affects her daily acitivities. The pain has also started affecting her left knee, but she believes this is due to changes in gait. She struggles with getting in and out of the car. Allergies furosemide [From LASIX] Allergy (Mild, Verified 03/04/22 10:20) RASH TAPE,PLASTIC Allergy (Mild, Uncoded 03/04/22 10:20) RASH HPI OV- Lt hip pain HPI Details Mita is a 71 year old woman who presents with complaints of left hip pain. She complains of pain with daily activity, worse with climbing in and out of a car or walking. She says this has been affecting her gait and she now has some worsening knee pain. She localizes her pain to her groin. She says she had some intermittent pain and achiness for the last few months, but it became severe in the last ~2 weeks. She says this is limiting her activity and she is unable to engage in any activities she would like. She takes Advil and Tylenol daily, with some relief. 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 Review of Systems Const All systems reviewed & are unremarkable except as noted in HPI and below Physical Exam Const General: no acute distress, alert and awake Orientation/consciousness: patient oriented x3 HEENT Head: Yes normocephalic and Yes atraumatic Eyes EOM: EOMs intact bilaterally Resp Effort & Inspection: normal respiratory effort and able to speak in complete sentences Cardio Jugular venous distension: no JVD Skin General skin exam: turgor normal Rashes: no rashes Neuro General: patient oriented x3 Extrem Other: Left Hip: + gait antalgia + impingement + [place] Psych Appearance: grossly normal Affect: normal affect Attitude: cooperative Results Reviewed Results Reviewed: I personally reviewed relevant radiographs. Moderate left hip OA Assessment & Plan Assessment & Plan (1) Osteoarthritis of left hip: Code(s): M16.12 - Unilateral primary osteoarthritis, left hip Plan: This is a 71 year old woman with left hip OA. She has pain with weight-bearing activities, worse with climbing in and out of a car. Her pain is localized to her groin, and worsened in the last ~2 weeks. She takes Tylenol & NSAIDs, with some relief. I discussed her diagnosis and treatment options. At this time I recommend injection and PT. She does not want to do PT at this time. I referred her to Pain Management for a left hip injection, under fluoroscopy. She can follow up after her injection if her symptoms have not improved. Plan Scribed for Jacob Aguilar MD by Félix Thakur, medical payment poster, on 11/08/22 at 11:15 AM, EST. Orders: Orders XR pelvis 1-2V Today M25.559 - Pain in unspecified hip Referrals Pain Management Referral M16.12 - Unilateral primary osteoarthritis, left hip Coding Level of Care Code Est Pt Level 4 (23751) Diagnoses Osteoarthritis of left hip M16.12
== END 2022-11-08 11:23 | disposition home or self-care (01) ==
PROVIDERS: PCP Internal Medicine Medical Oncology; Visit Provider Orthopaedic Surgery
DX: M16.12 Unilateral primary osteoarthritis, left hip (principal)
CPT/HCPCS: 99214

== ENCOUNTER 2022-12-09 08:57 | Outpatient (AMB) | payer MEDICARE, SELFPAY ==
[2022-12-09 09:29] VITALS: BP 114/70; PULSE 88; RESP 14; O2SAT 97; BMI 34.2
--- NOTE | 2022-12-09 09:29 | A.OFFVIS_ITS ---
Intake Vital Signs 12/09/22 09:29 Height 5 ft 6 in Weight 212 lb BMI 34.2 BP 114/70 Blood Pressure Location Rt brachial Position Sitting Respiration 14 Pulse 88 Pulse Source Pulse Oximeter Pulse Oximetry (%) 97 Oxygen Delivery Method Room Air Intake Visit Reasons: Unilateral primary osteoarthritis, left hip Allergies furosemide [From LASIX] Allergy (Mild, Verified 12/09/22 09:30) RASH TAPE,PLASTIC Allergy (Mild, Uncoded 12/09/22 09:30) RASH Medication List - Last Reconciled 12/09/22 by Shani Alicea LPN cyclobenzaprine 5 mg PO BID ibuprofen 800 mg PO TID lisinopril 2.5 mg PO DAILY HPI Unilateral primary osteoarthritis, left hip HPI Details 71-year-old female who presents today to the office for a new patient evaluation of left hip osteoarthritis. The patient was referred by Dr. Aguilar. The patient reports left-sided hip pain. She complains of pain with daily activity, which is worse with climbing in and out of a car or walking. She states that it has been affecting her gait. She has some worsening left knee pain. 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 She denies any trauma or injury to the knee in the past. She has not done physical therapy in the past for knee pain. Her pain is localized to her groin. She has had some intermittent pain and achiness for the last few months, but it has become severe in the last 5?6 weeks. Her pain is limiting her activity, and she is unable to engage in any activities. She takes Advil and Tylenol daily, with some relief. She reports that she did attend PT, which did not help. She has been using Flexeril and ibuprofen with good benefits. She discontinued Celebrex as it was not providing any relief. 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 Alert and oriented. Mood and affect appropriate. Follows and participates in conversation appropriately. Respiratory effort is unlabored. Able to transition from sit to stand unassisted. Ambulates with bilaterally normal heel strike and toe off. Results Reviewed Results Reviewed: 11/08/22: XR PELVIS FINDINGS: There is narrowing of the left hip joint is mild subchondral sclerosis in the left acetabulum. The right hip is unremarkable. Sacroiliac joints are normal. Soft tissues are normal. IMPRESSION: Degenerative changes in the left hip joint. Assessment & Plan Assessment & Plan (1) Patellofemoral arthralgia of left knee: Code(s): M25.562 - Pain in left knee (2) Osteoarthritis of left hip: Code(s): M16.12 - Unilateral primary osteoarthritis, left hip Qualifiers: Osteoarthritis type: primary Qualified Code(s): M16.12 - Unilateral primary osteoarthritis, left hip Plan Discussed cortisone injection for the treatment of hip pain. Discussed cortisone injections vs. gel injections vs. RFA vs. peripheral nerve stimulation vs. physical therapy vs. surgical interventions as possible treatment options for knee pain. A referral was provided to physical therapy for knee pain. The patient will receive a call to schedule an appointment. If pain continues to persists, we will consider VILLAGOMEZ injection vs. peripheral nerve stimulation. Will schedule her for left hip intra-articular steroid injection. Discussed the risks and benefits of the procedure with the patient in detail. All questions were answered. The patient is on board with the plan. Justification for interventional therapy: ? Patient with average pain > 6/10 ? Patient has exhausted conservative therapy Scribed for Dr. Gill by Rafael Mack, medical officer psychiatry, on 12/09/2022. I, Dr. Gill, have personally reviewed and agree with the information entered by the scribe. Orders: Orders PT Evaluation and Treatment 12/09/22 M25.562 - Pain in left knee Medications: Refilled cyclobenzaprine 5 mg PO BID 30 tabs 4RF cyclobenzaprine 5 mg PO BID 60 tabs 4RF Coding Level of Care Code New Pt Level 4 (66722) Diagnoses Patellofemoral arthralgia of left knee M25.562 Primary osteoarthritis of left hip M16.12 Osteoarthritis type: primary
== END 2022-12-09 09:58 | disposition home or self-care (01) ==
PROVIDERS: PCP Internal Medicine Medical Oncology; Visit Provider Internal Medicine
DX: M25.562 Pain in left knee (principal); M16.12 Unilateral primary osteoarthritis, left hip
CPT/HCPCS: 99204

== ENCOUNTER → 2022-12-09 08:57 | Outpatient (BNVA) | payer MEDICARE, OTHER, SELFPAY | PROVIDERS: PCP Internal Medicine Medical Oncology; Visit Provider Internal Medicine ==

== ENCOUNTER 2022-12-11 08:01 | Outpatient (REF) | payer MEDICARE, OTHER, SELFPAY ==
--- NOTE | ~2022-12-11 | MM_ITS ---
EXAMINATION: MM DIAGNOSTIC DIGITAL BREAST TOMOSYNTHESIS, BILATERAL CLINICAL INFORMATION: 6 month follow-up (second) left breast calcifications upper outer quadrant. Patient also due for bilateral screening exam. COMPARISON: Mammography: 05/31/2022, 10/04/2021, 09/18/2021, and 01/14/2020. TECHNIQUE: Digital breast tomosynthesis is performed in both the craniocaudal and mediolateral oblique views along with computer-aided detection (CAD). Synthesized 2D images are generated from the tomosynthesis. In addition, 2-D spot magnification CC and ML views of the left breast were obtained. FINDINGS: There are scattered areas of fibroglandular density (ACR BI-RADS breast composition Category b). The calcifications in the left breast, upper outer quadrant, remain largely stable with coarse, benign appearance, and are stable in number. These remain probably benign. Unchanged benign punctate calcifications seen in the right breast upper outer quadrant. No suspicious masses, new suspicious calcifications, or developing regions of architectural distortion in either breast. The parenchymal pattern is unchanged from the prior examination. There are no skin changes. MM/MM tomosynthesis diagnostic BI IMPRESSION: There are no significant changes from prior study. Left breast benign appearing calcifications upper outer quadrant remain unchanged and have a probably benign appearance. Six-month interval follow-up left breast diagnostic mammogram to include standard magnification views recommended to ensure stability. (Goal is two-year stability). No findings suspicious for malignancy in either breast. ASSESSMENT: BI-RADS BI-RADS 3 - Probably benign finding(s) - 6 month follow-up suggested RECOMMENDATION: 6 Month F/U Results were provided to the patient at time of visit by the technologist. This patient's information was entered into a reminder system with a target due date for their next mammogram.
[2022-12-11 08:18] LABS: MANUAL DIFF FLAG NO
[2022-12-11 09:27] LABS: Basophils Absolute Auto 0.1 X10*3/uL (0.0-0.2); Basophils Percent Auto 1.1 % (0-2); Eosinophils Absolute Auto 0.3 X10*3/uL (0.0-0.4); Eosinophils Percent Auto 3.8 % (0-4); Hematocrit 41.8 % (37.0-47.0); Hemoglobin 13.8 g/dl (12.0-16.0); Imm Gran Abs Auto 0.03 X10*3/uL (0.00-0.03); Imm Gran Pct Auto 0.4 % (0.0-0.4); Lymphocytes Absolute Auto 2.5 X10*3/uL (1.2-4.9); Lymphocytes Percent Auto 32.2 % (20-40); Mean Corpuscular Hemoglobin 31.6 pg (27.0-33.0); Mean Corpuscular Volume 95.7 fL (80.0-98.0); Mean Platelet Volume 10.7 fL (9.4-12.3); Monocytes Absolute Auto 0.4 X10*3/uL (0.1-1.2); Monocytes Percent Auto 5.5 % (2-11); Neutrophils Absolute Auto 4.3 x10*3/uL (2.0-8.3); Platelet Count 264 X10*3/uL (160-400); Red Blood Count 4.37 X10*6/uL (4.20-5.50); Red Cell Distribution Width 12.3 % (11.0-16.0); White Blood Count 7.6 X10*3/uL (4.8-10.8)
[2022-12-11 10:02] LABS: Alanine Aminotransferase 28 U/L (0-31); Albumin Level 4.1 g/dL (3.5-5.0); Alkaline Phosphatase 87 U/L (39-117); Anion Gap 13 (12-20); Aspartate Amino Transferase 21 U/L (5-31); Bilirubin Total 0.5 mg/dL (0.0-1.0); Blood Urea Nitrogen 17 mg/dL (9-16); Calcium 9.5 mg/dL (8.4-10.2); Carbon Dioxide 27 mmol/L (22-29); Chloride 107 mmol/L (96-108); Cholesterol 178 mg/dL (<200); Estimated Glomerular Filt Rate > 60; Glucose Fasting 139 mg/dL (60-99); HDL Cholesterol 71 mg/dL (>40); LDL Cholesterol Calculated 86 mg/dL (<100); Potassium 4.1 mmol/L (3.3-5.1); Sodium 143 mmol/L (135-145); Total Protein 6.7 g/dL (6.5-8.0); Triglycerides 107 mg/dL (<150)
== END 2022-12-11 08:02 | disposition home or self-care (01) ==
LOC: HO.MAMMO 08:01
PROVIDERS: PCP Internal Medicine Medical Oncology; Visit Provider Internal Medicine Medical Oncology
DX: R92.1 Mammographic calcification found on diagnostic imaging of breast (principal); I10 Essential (primary) hypertension; E66.9 Obesity, unspecified; E78.5 Hyperlipidemia, unspecified
CPT/HCPCS: 36415; 77062; 77066; 80053; 80061; 85025

== ENCOUNTER → 2022-12-11 09:00 | Outpatient (BNV) | payer MEDICARE, SELFPAY | PROVIDERS: PCP Internal Medicine Medical Oncology; Visit Provider Radiology Diagnostic Radiology | DX: R92.1 Mammographic calcification found on diagnostic imaging of breast (principal) | CPT/HCPCS: 77062; 77066 ==

== ENCOUNTER 2023-01-08 05:58 | Outpatient (REF) | payer MEDICARE, MEDICAID, SELFPAY ==
--- NOTE | ~2023-01-08 | FL_ITS ---
EXAMINATION: XR FLUOROSCOPY WITH IMAGES CLINICAL INFORMATION: Unilateral primary osteoarthritis, left hip. COMPARISON: None available. TECHNIQUE: Fluoroscopy Supervised By: Dr. Blaise Gill. Fluoroscopy Time: 0.2 minutes. Cumulative Dose: 6.83 mGy. DAP: 1.04 Gycm2. Images: 1. FINDINGS: Image demonstrates needle placement and contrast injection of the left hip joint FL/FL guidance in treatment room IMPRESSION: Fluoroscopy guidance for pain management procedure
== END 2023-01-08 05:59 | disposition home or self-care (01) ==
LOC: CF 05:58
PROVIDERS: Visit Provider Internal Medicine
DX: M16.12 Unilateral primary osteoarthritis, left hip (principal)
CPT/HCPCS: 20610; J3301

== ENCOUNTER 2023-01-08 09:27 | Outpatient (AMB) | payer MEDICARE, SELFPAY ==
[2023-01-08 09:33] VITALS: BP 122/66; PULSE 80; RESP 14; O2SAT 98
--- NOTE | 2023-01-08 09:33 | MHC.OFFVIS ---
Intake Vital Signs 01/08/23 09:33 01/08/23 10:06 BP 122/66 120/66 Blood Pressure Location Rt brachial Rt radial Position Sitting Sitting Respiration 14 14 Pulse 80 80 Pulse Source Pulse Oximeter Pulse Oximeter Pulse Oximetry (%) 98 98 Oxygen Delivery Method Room Air Room Air Intake Visit Reasons: left intraarticular hip inj Allergies furosemide [From LASIX] Allergy (Mild, Verified 01/08/23 09:34) RASH TAPE,PLASTIC Allergy (Mild, Uncoded 01/08/23 09:34) RASH HPI left intraarticular hip inj HPI Details Patient presents for scheduled procedure. Denies any recent cough, cold, infection, fever or other significant changes in medical history since last office visit. 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 Intra-articular spread confirmed using contrast fluoroscopy. Prep: site was prepped using sterile technique Injected: 40 mg of, Kenalog, with 3 mL of (0.5% ropivacaine) and other (in the hip capsule ) Approach Used: other (lateral) Procedure: The patient tolerated the procedure well Coding 10272 - Large joint Procedure code (CPT) selection complete Assessment & Plan Assessment & Plan (1) Osteoarthritis of left hip: Code(s): M16.12 - Unilateral primary osteoarthritis, left hip Qualifiers: Osteoarthritis type: primary Qualified Code(s): M16.12 - Unilateral primary osteoarthritis, left hip Plan Patient is status post left hip intra-articular injection. Patient tolerated procedure well and was discharged home in stable condition with discharge instructions. All questions were answered. We will follow-up via telephone or in clinic to assess response to therapy. A follow-up appointment was made during today's visit. Orders: Orders FL guidance in treatment room Today M16.12 - Unilateral primary osteoarthritis, left hip Coding Level of Care Code Procedure Only Diagnoses Primary osteoarthritis of left hip M16.12 Osteoarthritis type: primary CPT Codes Coding - 01375 Large joint: 25186 - Large joint ([id number])
[2023-01-08 10:06] VITALS: BP 120/66; PULSE 80; RESP 14; O2SAT 98
== END 2023-01-08 10:25 | disposition home or self-care (01) ==
LOC: HO.PMCPRC 09:27
PROVIDERS: PCP Internal Medicine Medical Oncology; Visit Provider Internal Medicine
DX: M16.12 Unilateral primary osteoarthritis, left hip (principal)
CPT/HCPCS: 20610; 77002

== ENCOUNTER 2023-09-02 10:54 | Outpatient (REF) | payer MEDICARE, SELFPAY ==
--- NOTE | ~2023-09-02 | MM_ITS ---
EXAMINATION: MM DIAGNOSTIC DIGITAL BREAST TOMOSYNTHESIS, BILATERAL CLINICAL INFORMATION: Follow-up calcifications left breast upper outer quadrant. Patient also due for bilateral screening exam as per protocol. COMPARISON: Mammography: 12/11/2022, 05/31/2022, 10/04/2021, 09/18/2021, and 01/14/2020. TECHNIQUE: Digital breast tomosynthesis is performed in both the craniocaudal and mediolateral oblique views along with computer-aided detection (CAD). Synthesized 2D images are generated from the tomosynthesis. In addition, spot magnification 2-D left CC and left ML x2 views were obtained. FINDINGS: The breasts are heterogeneously dense, which may obscure small masses (ACR BI-RADS breast composition Category c). The calcifications in the left breast, upper outer quadrant, mid to anterior one third, have become more coarse in appearance, remains stable in number, and abdomen taken on a classically benign morphology. No further follow-up recommended. These are benign calcifications. Unchanged benign punctate calcifications seen in the right breast upper outer quadrant without suspicious grouping or pleomorphism. No suspicious masses, new suspicious calcifications, or developing regions of architectural distortion in either breast. The parenchymal pattern is entirely unchanged from prior examinations. There are no skin or axillary abnormalities. MM/MM tomosynthesis diagnostic BI IMPRESSION: There are no findings suspicious for malignancy in either breast. Calcifications being followed in the left breast upper outer quadrant have become more coarse and are clearly benign without need for further follow-up. Recommend this patient return to routine annual screening mammography. ASSESSMENT: BI-RADS BI-RADS 2 - Benign Findings RECOMMENDATION: 1 year F/U Results were provided to the patient at time of visit by the technologist. This patient's information was entered into a reminder system with a target due date for their next mammogram.
== END 2023-09-02 10:55 | disposition home or self-care (01) ==
LOC: HO.MAMMO 10:54
PROVIDERS: PCP Internal Medicine Medical Oncology; Visit Provider Internal Medicine Medical Oncology
DX: R92.1 Mammographic calcification found on diagnostic imaging of breast (principal)
CPT/HCPCS: 77062; 77066

== ENCOUNTER → 2023-09-02 11:00 | Outpatient (BNV) | payer MEDICARE, SELFPAY | PROVIDERS: PCP Internal Medicine Medical Oncology; Visit Provider Radiology Diagnostic Radiology | DX: R92.1 Mammographic calcification found on diagnostic imaging of breast (principal) | CPT/HCPCS: 77066; G0279 ==

== ENCOUNTER 2023-12-19 08:41 | Outpatient (REF) | payer MEDICARE, SELFPAY ==
[2023-12-19 08:59] LABS: MANUAL DIFF FLAG NO
[2023-12-19 09:43] LABS: Basophils Absolute Auto 0.1 X10*3/uL (0.0-0.2); Basophils Percent Auto 1.2 % (0-2); Eosinophils Absolute Auto 0.3 X10*3/uL (0.0-0.4); Eosinophils Percent Auto 3.5 % (0-4); Hematocrit 41.8 % (37.0-47.0); Hemoglobin 13.5 g/dl (12.0-16.0); Imm Gran Abs Auto 0.04 X10*3/uL (0.00-0.03); Imm Gran Pct Auto 0.5 % (0.0-0.4); Lymphocytes Absolute Auto 2.2 X10*3/uL (1.2-4.9); Lymphocytes Percent Auto 28.6 % (20-40); Mean Corpuscular HGB Conc 32.3 g/dl (31.0-35.0); Mean Corpuscular Hemoglobin 31.4 pg (27.0-33.0); Mean Corpuscular Volume 97.2 fL (80.0-98.0); Monocytes Absolute Auto 0.5 X10*3/uL (0.1-1.2); Monocytes Percent Auto 6.5 % (2-11); Neutrophils Absolute Auto 4.5 x10*3/uL (2.0-8.3); Neutrophils Percent Auto 59.7 % (45-73); Platelet Count 243 X10*3/uL (160-400); Red Cell Distribution Width 13.2 % (11.0-16.0); White Blood Count 7.5 X10*3/uL (4.8-10.8)
[2023-12-19 10:35] LABS: Alanine Aminotransferase 32 U/L (0-31); Albumin Level 4.3 g/dL (3.5-5.0); Alkaline Phosphatase 82 U/L (39-117); Anion Gap 10 (12-20); Aspartate Amino Transferase 23 U/L (5-31); Bilirubin Total 0.4 mg/dL (0.0-1.0); Blood Urea Nitrogen 22 mg/dL (9-16); Calcium 9.3 mg/dL (8.4-10.2); Carbon Dioxide 29 mmol/L (22-29); Chloride 108 mmol/L (96-108); Cholesterol 186 mg/dL (<200); Estimated Glomerular Filt Rate > 60; Glucose Fasting 131 mg/dL (60-99); HDL Cholesterol 67 mg/dL (>40); LDL Cholesterol Calculated 101 mg/dL (<100); Potassium 4.3 mmol/L (3.3-5.1); Sodium 143 mmol/L (135-145); Thyroid Stimulating Hormone 1.58 uIU/mL (0.32-4.0); Triglycerides 90 mg/dL (<150)
[2023-12-19 10:39] LABS: Vitamin B12 > 2000 pg/mL (200-900)
== END 2023-12-19 08:42 | disposition home or self-care (01) ==
LOC: HO.LAB 08:41
PROVIDERS: PCP Internal Medicine Medical Oncology; Visit Provider Internal Medicine Medical Oncology
DX: I10 Essential (primary) hypertension (principal); E66.9 Obesity, unspecified; E78.5 Hyperlipidemia, unspecified; E53.9 Vitamin B deficiency, unspecified
CPT/HCPCS: 36415; 80053; 80061; 82607; 84443; 85025

== ENCOUNTER 2024-12-01 09:30 | Outpatient (REF) | payer MEDICARE, SELFPAY ==
--- OUTSIDE RECORDS SUMMARY | 2023-11-14 11:03 | XMS_ITS | Continuity of Care Document ---
Author Organization [employer] [facility] Address [address] [place] [address] Phone Care Team Providers Care Time Study Engineer Name Role Phone Gary MARTIN, Kamron Unavailable Unavailable Advance Directives Directive Yes / No Effective Date File Name No Information Encounters Encounter Description Practice Location Reason(s) For Visit Diagnoses Date Provider Providers Copied on Encounter [facility], [address], [place], [place], [id number], [place] tel:[phone] [facility] [employer] No Information Gary Lundy. [address] , [address], [place], [place], [address], [place]. tel:[phone] Family History Family Member Type Diagnosis Age At Onset No Information Payers Payer name Insurance type Covered democrat ID Authoriza tion(s) No Information Social History Type Description Quantity Date Captured Comments Sex Female Smoking Status No Information Chief Complaint And Reason For Visit No Information Reason For Referral Reason For Referral No Information History Of Present Illness Encounter Date Complaint History Of Prese nt Illness No Information Functional Status Date Functional Assessmen t No Information Instructions Date Instruction Additional Infor mation No Information Assessments Type Assessment Date No Information Patient Care Teams Name Effective Dates (start - stop) Status Members No Information
--- OUTSIDE RECORDS SUMMARY | 2024-02-03 11:00 | XMS_ITS ---
Author Organization Navid Ortiz III, MD Address [address] [place] [address] [place] [address] Care Team Providers Care Tube Room Supervisor Name Role Phone Navid Ortiz Primary Care Provider Allergies Allergen (clinical drug ingredient) Drug/Non Drug Allergy documented on EMR Reaction Allergy Type Onset Date Status Pollen Pollen Unknown Allergy Active Dust Mites Unknown Allergy Active Adhesive Unknown Allergy Active Reason For Referral Reason Evaluate and Treat Neoplasm Right Upper Lip ? Nodular BCC vs Benign Diagnosis 1 Lesion of face (L98. 9) Referral Organization Navid Ortiz III, MD Referring Provider First Name Navid Referring Provider Last Name Angel Referring Provider Speciality Internal M edicine Referred Provider [facility] elsa Referred Provider Specialty Dermatology General Notes Sandy Lanza 02/04/2024 10:59:08 AM >Patient would like for office to make the appointment for her, patient requesting Friday or mornings, Sandy Lanza 02/06/2024 10:55:54 AM > referral faxed with progress note, Sofia Burroughs CMA 02/13/2024 11:34:13 AM pt called stated [facility] called her and told her they do not take [facility] so pt is asking to be 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 to 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 that takes [facility] Referral Priority Routine REASON FOR VISIT Annual Exam Medications Medication SIG (Take, Route, Frequency, Duration) Notes Start Date End Date Status Ibuprofen 800 MG TAKE 1 TABLET BY JIMY 3 TIMES A DAY WITH FOOD OR MILK NEEDED Active Kempton 3 1000 MG 1 capsule Orally Onc e a day Active Cyclobenzaprine HCl 5 MG 1 tablet twice a day Active Vision Formula - as directed Orally Active Osteo Bi-Flex Joint Shield - as directed Orally Active Citalopram Hydrobromide 20 MG 1 tablet O rally Once a day for 90 days 02/03/2024 Active Atorvastatin Calcium 10 MG TAKE 1 TABLET BY MOUTH EVERY DAY Active Lisinopril 40 MG TAKE 1 TABLET BY JIMY TH EVERY DAY Active Citalopram Hydrobromide 10 MG TAKE 1 TAB LET BY MOUTH EVERY DAY Active Social History Tobacco Use: Social History Observation Description Date Details (start date - stop date) Former Smoker NA - NA Sex Assigned At : Social History Observation Description Sex Assigned At Female Tobacco Use/Smoking Question Answer Notes Patient is a former smoker How long has it been since you last smoked? > 10 years Additional Findings: Tobacco Non-User Ex-cigaret te smoker Problems Problem Type SNOMED Code ICD Code Onset Dates Problem Status W/U Status Risk Notes Problem 965067076 Chronic depression (F32.A) Active confirmed At her request because of increasing feelings of depression but not of self-harm I increased her citalopram to 20 mg daily. Follow-up visit was arranged. Vital Signs Temperature 97.3 degrees Fahrenheit 02/03/20 24 Blood pressure systolic 131 mm Hg 02/03/20 24 Blood pressure diastolic 78 mm Hg 024 Heart Rate 190 /min 02/03/2024 Height 65 in 02/03/2024 Weight 197 lbs 02/03/2024 BMI 32.78 kg/m2 02/03/2024 Encounters Encounter Location Date Provider Diagnosis Navid Ortiz III, MD [address] [place] [address] [place] [address] 02/03/2024 Navid Ortiz Obesity (BMI 30-39.9 ) E66.9 ; Former smoker Z87.891 ; Hyperlipidemia, unspecified hyperlipidemia type E78.5 ; Essential hypertension I10 ; Mild intermittent asthma without complication J45.20 ; Environmental allergies Z91.09 ; Cerebellar ataxia G11.9 ; Pain in left hip M25.552 ; Left anterior knee pain M25.562 and Chronic depression F32.A Assessments Encounter Date Diagnosis (ICD Code) Assessment Notes Treat ment Notes Treatment Clinical Notes 02/03/2024 Obesity (BMI 30-39.9 ) (ICD-10 - E66.9) She has voluntarily lost 16 pounds through diet and exercise. Her body mass index is now 32.78. Her blood pressure is stable. We recommend that she continue weight loss until her body mass index is in the normal range. We discussed diet and nutrition at length. 02/03/2024 Former smoker (ICD-1 0 - Z87.891) She is highly motivated not to smoke. She has a plan to prevent relapse in times of stress and illness. 02/03/2024 Hyperlipidemia, unspecified hyperlipidemia type (ICD-10 - E78.5) Her current fasting lipid profile is in the normal range. No change in her regimen was needed. She will continue to lose weight and consume a healthy diet. 02/03/2024 Essential hypertension (ICD-10 - I10) Her blood pressure is stable today at 131/78. No change in her regimen was made. 02/03/2024 Mild intermittent asthma without complication (ICD-10 - J45.20) There was no sign of asthma today. She is doing well without allergies. Current therapy was continued. 02/03/2024 Environmental allergies (ICD-10 - Z91.09) She reports mild allergies. During pollen season. She is asymptomatic at this time. 02/03/2024 Cerebellar ataxia (ICD-10 - G11.9) She has had no falls and has adjusted. This has not been a significant problem in her life since diagnosis. He will be observed. 02/03/2024 Pain in left hip (ICD-10 - M25.552) The pain in her left Has returned and she is debating whether to have injections. I suggested she try it at least once. 02/03/2024 Left anterior knee pain (ICD-10 - M25.562) There is no crepitus or limitation of range of motion or effusion. The pain is likely tendinitis. She will use heat and rest and ibuprofen. 02/03/2024 Chronic depression (ICD-10 - F32.A) At her request because of increasing feelings of depression but not of self-harm I increased her citalopram to 20 mg daily. Follow-up visit was arranged. Plan Of Treatment Medication Medication Name Sig Start Date Stop Date Notes Ibuprofen 800 MG TAKE 1 TABLET BY JIMY TH 3 TIMES A DAY WITH FOOD OR MILK NEEDED Kempton 3 1000 MG 1 capsule Orally Once a day Cyclobenzaprine HCl 5 MG 1 tablet twice a day Vision Formula - as directed Orally Osteo Bi-Flex Joint Shield - as directed Orally Citalopram Hydrobromide 20 MG 1 tablet O rally Once a day for 90 days 02/03/2024 Atorvastatin Calcium 10 MG TAKE 1 TABLET BY MOUTH EVERY DAY Lisinopril 40 MG TAKE 1 TABLET BY JIMY TH EVERY DAY Citalopram Hydrobromide 10 MG TAKE 1 TAB LET BY MOUTH EVERY DAY Pending Test Test Name Order Date PROFILE, FASTING (COMPREHENSIVE METABOLI C) 02/03/2024 CBC WITH AUTO DIFF 02/03/2024 Lipid Panel 02/03/2024 Referrals Referral Date Details 02/03/2024 02/03/2024, Evaluate and Treat Neoplasm Right Upper Lip ? Nodular BCC vs Benign, Dermatology [facility], [place], [facility] Appt Details Follow Up: 4 Months, In four months, Reason: OV, Routine check-up Provider Name:Navid Ortiz, 02/09/2025 10:00:00 AM, [address] [place] [address], [id number], Progress Notes * Mita CABRERA EDOB:1950 (73 yo F)Acc No.[id number]:02/03/2024 Progress Notes Patient: Mita ALEXANDER Provider: Karthik Ortiz MD :1950 A ge:73 Y S ex:Female Date:02/03/2024 Address:[address] [place], [place] [id number] Subjective: * Chief Complaints: * A nnual Exam * HPI: D epression Screening: PHQ-9 L ittle interest or pleasure in doing things?Not at all F eeling down, depressed, or hopeless S everal days T rouble falling or staying asleep, or sleeping too much S everal days F eeling tired or having little energy N ot at all P oor appetite or overeating S everal days F eeling bad about yourself or that you are a failure, or have let yourself or your family down N ot at all T rouble concentrating on things, such as reading the newspaper or watching television N ot at all M oving or speaking so slowly that other people could have noticed; or the opposite, being so fidgety or restless that you have been moving around a lot more than usual N ot at all T houghts that you would be better off or of hurting yourself in some way N ot at all T otal Score 3 I nterpretation M inimal Depression C OVID-19 Screening: Questions H ave you experienced fever, chills, cough, sore throat, shortness of breath, difficulty breathing, muscle aches, loss of taste or smell? N o H ave you been exposed to the virus within the last 10 days? N o H ave you travelled internationally in the last 10 days? N o H ave you been exposed to COVID-19 in the past? N o F all Risk Screening: Fall History H ave you had any falls with injury in the past year? N o H ave you had two or more falls in the past year? N o F all Risk Assessment: S MODE Questions: SDOH Questions I n the past year have you been worried about losing your housing? N o I n the past year have you or any family members you live with been unable to get any of the following when it was really needed? Check all that apply: Myla gibbs to answer * : The patient, Mita, a 73-year-old female, reported intermittent pain in her left hip, which seems to worsen during rainy weather. She also mentioned having good and bad days in terms of her mobility. She has been experiencing this for an unspecified period. She also reported a weight loss of 16 lbs, which was intentional and achieved gradually. She has a small growth on her lip that appeared about 5-6 months ago. She also mentioned occasional trouble with her left knee. She has been feeling a bit depressed lately and requested an increase in her depression medication. Blood Sugar Level is 131. * ROS: G eneral/Constitutional: Admits p ain, o nly normal aches and pains. C hills?denies. F atigue a dmits. F ever d enies. A dmits W eight loss. ? E NT: Decreased hearing d enies. R espiratory: Cough d enies. C ardiovascular: Chest pain with exertion d enies. D yspnea on exertion?denies. S hortness of breath d enies. G astrointestinal: Constipation o ccasional. D ecreased appetite d enies. D iarrhea d enies. H eartburn o ccasional. N ausea d enies. R ectal bleeding d enies. V omiting d enies. H ematology: bruising d enies. p etechiae d enies. S wollen glands n one have been noted. G enitourinary: Frequent urination d enies. M usculoskeletal: Muscle aches d enies. P ainful joints d enies. S ciatica d enies. W eakness d enies. S kin: Itching d enies. R karla d enies. S kin lesion(s)?denies. N eurologic: Difficulty speaking d enies. D izziness d enies.?Headache d enies. L ow back pain d enies. P sychiatric: Depressed mood w hich is moderate. * Medical History: * Surgical History: H ysterectomy for benigh mass 1998gastric bypass 1999choleycystectomy 1989cataract surgery 2018No history * Hospitalization/Major Diagno stic Procedure: N o history * Family History: F ather: 86 yrs, colon ca cer, diagnosed with HTN. M other: alive 89 yrs, vertigo, macular degeneration, skin cancer, breast cancer age 71, diagnosed with Cancer. 1 brother(s) , 2 sister(s) - healthy. 2 daughter(s) - healthy. . Her father of colon cancer and her mother had breast cancer at the age of 70. Her mother also had skin cancer. Her 3 siblings are healthy and well. She has 2 healthy and well daughters. She is not aware of any inherited family cancer syndromes. She is not aware of any family history of mental illness. * Social History: T obacco Use: T obacco Use/Smoking P atient is a f ormer smoker H ow long has it been since you last smoked??> 10 years A dditional Findings: Tobacco Non-User E x-cigarette smoker S he was born in [place], [place]. She was in November 2019. 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 Her children are local. She has two healthy grandchildren. * Medications: T akingLisinopril 40 MG Tablet TAKE 1 TABLET BY MOUTH EVERY DAY Atorvastatin Calcium 10 MG Tablet TAKE 1 TABLET BY MOUTH EVERY DAY Ibuprofen 800 MG Tablet TAKE 1 TABLET BY MOUTH 3 TIMES A DAY WITH FOOD OR MILK NEEDED Citalopram Hydrobromide 10 MG Tablet TAKE 1 TABLET BY MOUTH EVERY DAY Kempton 3 1000 MG Capsule 1 capsule Orally Once a day Osteo Bi-Flex Joint Shield - Tablet as directed Orally Vision Formula - Tablet as directed Orally Medication List reviewed and reconciled with the patientTaking Lisinopril 40 MG Tablet TAKE 1 TABLET BY MOUTH EVERY DAY Taking Atorvastatin Calcium 10 MG Tablet TAKE 1 TABLET BY MOUTH EVERY DAY Taking Ibuprofen 800 MG Tablet TAKE 1 TABLET BY MOUTH 3 TIMES A DAY WITH FOOD OR MILK NEEDED Taking Citalopram Hydrobromide 10 MG Tablet TAKE 1 TABLET BY MOUTH EVERY DAY Taking Kempton 3 1000 MG Capsule 1 capsule Orally Once a day Taking Osteo Bi-Flex Joint Shield - Tablet as directed Orally Taking Vision Formula - Tablet as directed Orally Medication List reviewed and reconciled with the patient * Allergies: D ust MitesPollenAdhesiveno[Allergies Verified] Objective: * Vitals: H t: 65, Wt:197, BMI:32.78, BP:131/78, HR:190, Temp:97.3, Wt-k.36. * P ast Orders: Lab:[facility] * Collection Date 12/19/2023 12/11/2022 10/09/2021 Collection Time 08:58 AM 08:14 AM 08:22 AM Order Date 12/19/2023 12/11/2022 10/09/2021 Sodium 143 (Ref Range: 135-145 mmol/L) 143 (Ref Range: 135-145 mmol/L) 142 (Ref Range: 135-145 mmol/L) Bilirubin Total 0.4 (Ref Range: 0.0-1.0 mg/dL) 0.5 (Ref Range: 0.0-1.0 mg/dL) 0.4 (Ref Range: 0.0-1.0 mg/dL) Aspartate Amino Transferase 23 (Ref Range: 5-31 U/L) 21 (Ref Range: 5-31 U/L) 18 (Ref Range: 5-31 U/L) Alanine Aminotransferase 32 H (Ref Range: 0-31 U/L) 28 (Ref Range: 0-31 U/L) 25 (Ref Range: 0-31 U/L) Total Protein 7.0 (Ref Range: 6.5-8.0 g/dL) 6.7 (Ref Range: 6.5-8.0 g/dL) 5.8 L (Ref Range: 6.5-8.0 g/dL) Albumin Level 4.3 (Ref Range: 3.5-5.0 g/dL) 4.1 (Ref Range: 3.5-5.0 g/dL) 3.9 (Ref Range: 3.5-5.0 g/dL) Alkaline Phosphatase 82 (Ref Range: 39-117 U/L) 87 (Ref Range: 39-117 U/L) 73 (Ref Range: 39-117 U/L) Potassium 4.3 (Ref Range: 3.3-5.1 mmol/L) 4.1 (Ref Range: 3.3-5.1 mmol/L) 4.3 (Ref Range: 3.3-5.1 mmol/L) Chloride 108 (Ref Range: 96-108 mmol/L) 107 (Ref Range: 96-108 mmol/L) 106 (Ref Range: 96-108 mmol/L) Carbon Dioxide 29 (Ref Range: 22-29 mmol/L) 27 (Ref Range: 22-29 mmol/L) 30 H (Ref Range: 22-29 mmol/L) Anion Gap 10 L (Ref Range: 12-20) 13 (Ref Range: 12-20) 10 L (Ref Range: 12-20) Blood Urea Nitrogen 22 H (Ref Range: 9-16 mg/dL) 17 H (Ref Range: 9-16 mg/dL) 14 (Ref Range: 9-16 mg/dL) Creatinine 0.69 (Ref Range: 0.5-1.4 mg/dL) 0.68 (Ref Range: 0.5-1.4 mg/dL) 0.62 (Ref Range: 0.5-1.4 mg/dL) Estimated Glomerular Filt Rate > 60 > 60 > 60 Glucose Fasting 131 H (Ref Range: 60-99 mg/dL) 139 H (Ref Range: 60-99 mg/dL) 106 H (Ref Range: 60-99 mg/dL) Calcium 9.3 (Ref Range: 8.4-10.2 mg/dL) 9.5 (Ref Range: 8.4-10.2 mg/dL) 8.7 (Ref Range: 8.4-10.2 mg/dL) * Lab:Lipid Panel * Collection Date 12/19/2023 12/11/2022 10/09/2021 Collection Time 08:58 AM 08:14 AM 08:22 AM Order Date 12/19/2023 12/11/2022 10/09/2021 Triglycerides 90 (Ref Range: <150 mg/dL) 107 (Ref Range: <150 mg/dL) 80 (Ref Range: mg/dL) Cholesterol 186 (Ref Range: <200 mg/dL) 178 (Ref Range: <200 mg/dL) 176 (Ref Range: mg/dL) LDL Cholesterol Calculated 101 H (Ref Range: <100 mg/dL) 86 (Ref Range: <100 mg/dL) 86 (Ref Range: mg/dl) HDL Cholesterol 67 (Ref Range: >40 mg/dL) 71 (Ref Range: >40 mg/dL) 74 (Ref Range: mg/dL) ???Lab:Vitamin B12 (Order Date - 12/19/2023) (Collection Date & Time - 12/19/2023 08:58 AM)?ValueReference Range?Vitamin B12> 4474C320- 900 - pg/mL * Lab:Thyroid Stimulating Horm one * Collection Date 12/19/2023 01/29/2021 Collection Time 08:58 AM 08:55 AM Order Date 12/19/2023 01/29/2021 Thyroid Stimulating Hormone 1.58 (Ref Range: 0.32-4.0 uIU/mL) 1.33 (Ref Range: 0.32-4.0 uIU/mL) * Lab:Complete Blood Count Aut o Diff * Collection Date 12/19/2023 12/11/2022 03/04/2022 Collection Time 08:58 AM 08:14 AM 02:45 PM Order Date 12/19/2023 12/11/2022 03/04/2022 White Blood Count 7.5 (Ref Range: 4.8-10.8 X10*3/uL) 7.6 (Ref Range: 4.8-10.8 X10*3/uL) 6.7 (Ref Range: 4.8-10.8 X10*3/uL) Red Blood Count 4.30 (Ref Range: 4.20-5.50 X10*6/uL) 4.37 (Ref Range: 4.20-5.50 X10*6/uL) 4.07 L (Ref Range: 4.20-5.50 X10*6/uL) Hemoglobin 13.5 (Ref Range: 12.0-16.0 g/dl) 13.8 (Ref Range: 12.0-16.0 g/dl) 12.6 (Ref Range: 12.0-16.0 g/dl) Hematocrit 41.8 (Ref Range: 37.0-47.0 %) 41.8 (Ref Range: 37.0-47.0 %) 38.7 (Ref Range: 37.0-47.0 %) Mean Corpuscular Volume 97.2 (Ref Range: 80.0-98.0 fL) 95.7 (Ref Range: 80.0-98.0 fL) 95.1 (Ref Range: 80.0-98.0 fL) Mean Corpuscular Hemoglobin 31.4 (Ref Range: 27.0-33.0 pg) 31.6 (Ref Range: 27.0-33.0 pg) 31.0 (Ref Range: 27.0-33.0 pg) Mean Corpuscular HGB Conc 32.3 (Ref Range: 31.0-35.0 g/dl) 33.0 (Ref Range: 31.0-35.0 g/dl) 32.6 (Ref Range: 31.0-35.0 g/dl) Red Cell Distribution Width 13.2 (Ref Range: 11.0-16.0 %) 12.3 (Ref Range: 11.0-16.0 %) 13.2 (Ref Range: 11.0-16.0 %) Platelet Count 243 (Ref Range: 160-400 X10*3/uL) 264 (Ref Range: 160-400 X10*3/uL) 158 L (Ref Range: 160-400 X10*3/uL) Mean Platelet Volume 11.0 (Ref Range: 9.4-12.3 fL) 10.7 (Ref Range: 9.4-12.3 fL) 10.7 (Ref Range: 9.4-12.3 fL) Neutrophils Percent Auto 59.7 (Ref Range: 45-73 %) 57.0 (Ref Range: 45-73 %) 60.9 (Ref Range: 45-73 %) Imm Gran Pct Auto 0.5 H (Ref Range: 0.0-0.4 %) 0.4 (Ref Range: 0.0-0.4 %) 0.3 (Ref Range: 0.0-0.4 %) Lymphocytes Percent Auto 28.6 (Ref Range: 20-40 %) 32.2 (Ref Range: 20-40 %) 29.5 (Ref Range: 20-40 %) Monocytes Percent Auto 6.5 (Ref Range: 2-11 %) 5.5 (Ref Range: 2-11 %) 6.0 (Ref Range: 2-11 %) Eosinophils Percent Auto 3.5 (Ref Range: 0-4 %) 3.8 (Ref Range: 0-4 %) 2.7 (Ref Range: 0-4 %) Basophils Percent Auto 1.2 (Ref Range: 0-2 %) 1.1 (Ref Range: 0-2 %) 0.6 (Ref Range: 0-2 %) NRBC Pct Auto 0.0 (Ref Range: 0.0-0.2 /100WBC) 0.0 (Ref Range: 0.0-0.2 /100WBC) 0.0 (Ref Range: 0.0-0.2 /100WBC) Neutrophils Absolute Auto 4.5 (Ref Range: 2.0-8.3 x10*3/uL) 4.3 (Ref Range: 2.0-8.3 x10*3/uL) 4.1 (Ref Range: 2.0-8.3 x10*3/uL) Imm Gran Abs Auto 0.04 H (Ref Range: 0.00-0.03 X10*3/uL) 0.03 (Ref Range: 0.00-0.03 X10*3/uL) 0.02 (Ref Range: 0.00-0.03 X10*3/uL) Lymphocytes Absolute Auto 2.2 (Ref Range: 1.2-4.9 X10*3/uL) 2.5 (Ref Range: 1.2-4.9 X10*3/uL) 2.0 (Ref Range: 1.2-4.9 X10*3/uL) Monocytes Absolute Auto 0.5 (Ref Range: 0.1-1.2 X10*3/uL) 0.4 (Ref Range: 0.1-1.2 X10*3/uL) 0.4 (Ref Range: 0.1-1.2 X10*3/uL) Eosinophils Absolute Auto 0.3 (Ref Range: 0.0-0.4 X10*3/uL) 0.3 (Ref Range: 0.0-0.4 X10*3/uL) 0.2 (Ref Range: 0.0-0.4 X10*3/uL) Basophils Absolute Auto 0.1 (Ref Range: 0.0-0.2 X10*3/uL) 0.1 (Ref Range: 0.0-0.2 X10*3/uL) 0.0 (Ref Range: 0.0-0.2 X10*3/uL) NRBC Abs Auto 0.000 (Ref Range: 0.0-0.012 X10*3/uL) 0.000 (Ref Range: 0.0-0.012 X10*3/uL) 0.000 (Ref Range: 0.0-0.012 X10*3/uL) * Examination: G eneral Examination: GENERAL APPEARANCE: p leasant, well nourished, well developed, in no acute distress, calm and relaxed, obese, woman. HEAD: a traumatic, normocephalic. EYES: e jeanine, perrla, anicteric, conjugate. EARS: n ormal. NOSE: s eptum intact. ORAL CAVITY: n ormal, unremarkable. NECK/THYROID: n o jugular venous distention, no carotid bruit, thyroid normal. LYMPH NODES: n o enlarged lymph nodes,spleen normal. SKIN: n o suspicious lesions, anicteric. HEART: n o clicks, gallops, murmurs, or rubs, regular rhythm, S1, S2 normal, no s3, or vascular bruits. LUNGS: c lear to auscultation . BREASTS: no masses palpable bilaterally. ABDOMEN: b owel sounds normal, no ascites, no organomegaly, no mass, centripital obesity. RECTAL EXAM: n ot examined. MUSCULOSKELETAL: e xtremities unremarkable, no clubbing, cyanosis or edema. PERIPHERAL PULSES: n ormal. NEUROLOGIC: a lert and oriented, cranial nerves 2-12 grossly intact, deep tendon reflexes 2+ symmetrical, motor strength normal upper and lower extremities, sensory exam intact. PSYCH: a lert, oriented. - : { 'Skin Exam':'Some benign spots', 'Breast Exam': 'Normal', 'Heart Exam': 'Normal', 'Thyroid Exam': 'Normal', 'Blood Pressure': 'Normal', 'Pulse': 'Regular', 'Respiratory Rate': 'Normal'}. Assessment: * Assessment: 1. F ormer smoker - Z87.891 (Primary) N otes :She is highly motivated not to smoke. She has a plan to prevent relapse in times of stress and illness. 2 . O besity (BMI 30-39.9) - E66.9 N otes :She has voluntarily lost 16 pounds through diet and exercise. Her body mass index is now 32.78. Her blood pressure is stable. We recommend that she continue weight loss until her body mass index is in the normal range. We discussed diet and nutrition at length. 3 . H yperlipidemia, unspecified hyperlipidemia type - E78.5 N otes :Her current fasting lipid profile is in the normal range. No change in her regimen was needed. She will continue to lose weight and consume a healthy diet. 4 . E ssential hypertension - I10 N otes :Her blood pressure is stable today at 131/78. No change in her regimen was made. 5 . M ild intermittent asthma without complication - J45.20 N otes :There was no sign of asthma today. She is doing well without allergies. Current therapy was continued. 6 . E nvironmental allergies - Z91.09 N otes :She reports mild allergies. During pollen season. She is asymptomatic at this time. 7 . C erebellar ataxia - G11.9 N otes :She has had no falls and has adjusted. This has not been a significant problem in her life since diagnosis. He will be observed. 8 . P ain in left hip - M25.552 N otes :The pain in her left Has returned and she is debating whether to have injections. I suggested she try it at least once. 9 . L eft anterior knee pain - M25.562 N otes :There is no crepitus or limitation of range of motion or effusion. The pain is likely tendinitis. She will use heat and rest and ibuprofen. 1 0. C hronic depression - F32.A N otes :At her request because of increasing feelings of depression but not of self-harm I increased her citalopram to 20 mg daily. Follow-up visit was arranged. Plan: * Treatment: 2. O besity (BMI 30-39.9) L AB: PROFILE, FASTING (COMPREHENSIVE METABOLIC) L AB: CBC WITH AUTO DIFF L AB: Lipid Panel 3. H yperlipidemia, unspecified hyperlipidemia type L AB: PROFILE, FASTING (COMPREHENSIVE METABOLIC) L AB: CBC WITH AUTO DIFF L AB: Lipid Panel 4. O thers Continue Lisinopril Tablet, 40 MG, TAKE 1 TABLET BY MOUTH EVERY DAY; C ontinue Atorvastatin Calcium Tablet, 10 MG, TAKE 1 TABLET BY MOUTH EVERY DAY; C ontinue Ibuprofen Tablet, 800 MG, TAKE 1 TABLET BY MOUTH 3 TIMES A DAY WITH FOOD OR MILK NEEDED; C ontinue Kempton 3 Capsule, 1000 MG, 1 capsule, Orally, Once a day; C ontinue Osteo Bi-Flex Joint Shield Tablet, -, as directed, Orally; C ontinue Vision Formula Tablet, -, as directed, Orally; C ontinue Cyclobenzaprine HCl Tablet, 5 MG, 1 tablet twice a day; S tart Citalopram Hydrobromide Tablet, 20 MG, 1 tablet, Orally, Once a day, 90 days, 90 Tablet, Refills 3. ? Referral To:Dermatology [facility] Reason:Evaluate and Treat Neoplasm Right Upper Lip ? Nodular BCC vs Benign * Procedure Codes: * Preventive Medicine: Counseling: C are goal follow-up plan: Counseling for abnormal BMI given Y es Above Normal BMI Follow-up D ietary management education, guidance, and counseling, Dietary needs education S moking/Tobacco Use Patient counseled on the dangers of tobacco use and urged to quit. 1 04/04/2023 * Follow Up: 4 Months, In four months (Reason: OV, Routine check-up) * Images: * Sign off status: Completed true * Provider: Karthik Ortiz MD Date: 04/04/2023 Generated for Mahoganyi ravin/Allison/eTransmitting on: 0 12/01/2024 10:19 AM EDT History and Physical Notes * HPI (History of Present Illness) Category Sub-Category Detail Notes Depression Screening PHQ-9 Little inte rest or pleasure in doing things: Not at all Feeling down, depressed, or hopeless: Se veral days Trouble falling or staying asleep, or sl eeping too much: Several days Feeling tired or having little energy: N ot at all Poor appetite or overeating: Several day s Feeling bad about yourself o r that you are a failure, or have let yourself or your family down: Not at all Trouble concentrating on thi ngs, such as reading the newspaper or watching television: Not at all Moving or speaking so slowly that other people could have noticed; or the opposite, being so fidgety or restless that you have been moving around a lot more than usual: Not at all Thoughts that you would be b marco antonio off or of hurting yourself in some way: Not at all Total Score: 3 Interpretation: Minimal Depression Fall Risk Screening Fall History Have you had any falls with injury in the past year?: No Have you had two or more falls in the year?: No Fall Risk Assessment:: COVID-19 Screening Questions Have you had any new onset fever, chills, cough, congestion, sore throat, shortness of breath, muscle aches?: No Have you been exposed to the virus withi n the last 10 days?: No Have you travelled internationally in e last 10 days?: No Have you been exposed to COVID-19 in the past?: No SDOH Questions SDOH Questions In the past year have you been worried about losing your housing?: No In the past year have you or any family members you live with been unable to get any of the following when it was really needed? Check all that apply:: Decline to answer Examination Category Sub-Category Detail Notes General Examination GENERAL APPEARANCE: pleasant , well nourished, well developed, in no acute distress, calm and relaxed, obese, woman HEAD: atraumatic, normocep halic EYES: eomi, perrla, anicte kee, conjugate EARS: normal NOSE: septum intact NECK/THYROID: no jugular venous di stention, no carotid bruit, thyroid normal HEART: no clicks, gallops, murmurs, or rubs, regular rhythm, S1, S2 normal, no s3, or vascular bruits LUNGS: clear to auscultatio n ABDOMEN: bowel sounds normal, no ascites, no organomegaly, no mass, centripital obesity NEUROLOGIC: alert and oriented, cranial nerves 2-12 grossly intact, deep tendon reflexes 2+ symmetrical, motor strength normal upper and lower extremities, sensory exam intact SKIN: no suspicious lesion s, anicteric PERIPHERAL PULSES: normal BREASTS: no masses palpable b ilaterally MUSCULOSKELETAL: extremities unremark able, no clubbing, cyanosis or edema LYMPH NODES: no enlarged lymph no faye,spleen normal RECTAL EXAM: not examined PSYCH: alert, oriented ORAL CAVITY: normal, unremarkable Consultation Request Notes Referral Date Referring Provider Referred Provider Not kristie 02/03/2024 Navid Ortiz, Dermatology Evalu ate and Treat Neoplasm Right Upper Lip ? Nodular BCC vs Benign
--- OUTSIDE RECORDS SUMMARY | 2024-02-13 07:29 | XMS_ITS ---
Author Organization Navid Ortiz III, MD Address [address] [place] [address] [address] [place] [address] Care Team Providers Care Commercial Finance Analyst Name Role Phone Navid Ortiz Primary Care Provider [phone] REASON FOR VISIT Needs referral Social History Sex Assigned At : Social History Observation Description Sex Assigned At Female Encounters Encounter Location Date Provider Diagnosis Navid Ortiz III, MD [address] [place] [address] [place] [address] 02/13/2024 Navid Ortiz Plan Of Treatment Next Appt Details Provider Name:Navid Ortiz, 02/09/2025 10:00:00 AM, [address] [place] [address] [place], [address], Progress Notes * Mita CABRERA EDOB:1950 (73 yo F)Acc No.[id number]:02/13/2024 Patient: Jacinto LOPEZMita :1950 A ge:73 Y S ex:Female Address:[address] [place] [address], [phone] Subjective: * Chief Complaints: * N eeds referral * Medical History: * Surgical History: * Hospitalization/Major Diagno stic Procedure: * Medications: Objective: * Vitals: * Physical Examination: Assessment: Plan: * Treatment: * Procedure Codes: * true * Date: Generated for Printi ng/Faxing/eTransmitting on: 0 12/01/2024 10:18 AM EDT
--- OUTSIDE RECORDS SUMMARY | 2024-06-02 13:30 | XMS_ITS ---
Author Organization Navid Ortiz III, MD Address [address] [place] [address] [address] [place] [address] Care Team Providers Care Steel Engraver Name Role Phone Navid Ortiz Primary Care Provider Allergies Allergen (clinical drug ingredient) Drug/Non Drug Allergy documented on EMR Reaction Allergy Type Onset Date Status Pollen Pollen Unknown Allergy Active Dust Mites Unknown Allergy Active Adhesive Unknown Allergy Active REASON FOR VISIT Follow up Medications Medication SIG (Take, Route, Frequency, Duration) Notes Start Date End Date Status Cyclobenzaprine HCl 5 MG 1 tablet twice a day Active Vision Formula - as directed Orally Active Citalopram Hydrobromide 20 MG 1 tablet O rally Once a day 02/03/2024 Active Citalopram Hydrobromide 10 MG TAKE 1 TAB LET BY MOUTH EVERY DAY Active Osteo Bi-Flex Joint Shield - as directed Orally Active Atorvastatin Calcium 10 MG TAKE 1 TABLET BY MOUTH EVERY DAY Active Lisinopril 40 MG TAKE 1 TABLET BY JIMY TH EVERY DAY Active [place] 3 1000 MG 1 capsule Orally Onc e a day Active Ibuprofen 800 MG TAKE 1 TABLET BY MOUTH 3 TIMES A DAY WITH FOOD OR MILK Orally every 8 hrs As needed Active Social History Tobacco Use: Social History Observation Description Date Details (start date - stop date) Former Smoker NA - NA Sex Assigned At : Social History Observation Description Sex Assigned At Female Tobacco Use/Smoking Question Answer Notes Patient is a former smoker How long has it been since you last smoked? > 10 years Additional Findings: Tobacco Non-User Ex-cigaret te smoker Encounters Encounter Location Date Provider Diagnosis Navid Ortiz III, MD [address] [place] [address] [place] [address] 06/02/2024 Navid Ortiz Former smoker Z87.891 Assessments Encounter Date Diagnosis (ICD Code) Assessment Notes Treatment Notes Treatment Clinical Notes 06/02/2024 Former smoker (ICD-10 - Z87.891) She is highly motivated not to smoke. She has a plan to prevent relapse in times of stress and illness. Plan Of Treatment Medication Medication Name Sig Start Date Stop Date Notes Cyclobenzaprine HCl 5 MG 1 tablet twice a day Vision Formula - as directed Orally Citalopram Hydrobromide 20 MG 1 tablet Orally Once a day 1 04/04/2023 Citalopram Hydrobromide 10 MG TAKE 1 TAB LET BY MOUTH EVERY DAY Osteo Bi-Flex Joint Shield - as directed Orally Atorvastatin Calcium 10 MG TAKE 1 TABLET BY MOUTH EVERY DAY Lisinopril 40 MG TAKE 1 TABLET BY JIMY TH EVERY DAY [place] 3 1000 MG 1 capsule Orally Once a day Ibuprofen 800 MG TAKE 1 TABLET BY JIMY TH 3 TIMES A DAY WITH FOOD OR MILK Orally every 8 hrs Next Appt Details Provider Name:Navid Ortiz, 02/09/2025 10:00:00 AM, [address] [place] [address], [address], Progress Notes * Mita CABRERA EDOB:1950 (73 yo F)Acc No.[id number]:06/02/2024 Progress Notes Patient: Mita ALEXANDER Provider: Karthik Ortiz MD :1950 A ge:73 Y S ex:Female Date:06/02/2024 Address:[address] [place], [place] [phone] Subjective: * Chief Complaints: * 1 . Follow up. * HPI: C OVID-19 Screening: Questions H ave you had any new onset fever, chills, cough, congestion, sore throat, shortness of breath, muscle aches? N o * ROS: G eneral/Constitutional: pain o nly normal aches and pains. C hills d enies.?Fatigue a dmits. F ever d enies. E NT: Decreased hearing d enies. R espiratory: Cough d enies. C ardiovascular: Chest pain with exertion d enies. D yspnea on exertion?denies. S hortness of breath d enies. G astrointestinal: Constipation d enies. D ecreased appetite d enies.?Diarrhea d enies. H eartburn d enies. N ausea d enies. R ectal bleeding?denies. V omiting d enies. H ematology: bruising [...] pain d enies. P sychiatric: Depressed mood d enies. * Medical History: H ypertension, Obesity, Allergies to pollen and dust, Childhood asthmma, Choleycystitis 1989, Former smoker, LMP , . * Surgical History: H ysterectomy for benigh mass 1998, gastric bypass 1999, choleycystectomy 1989, cataract surgery 2017, No history . * Hospitalization/Major Diagno stic Procedure: N o history . * Family History: F ather: 86 yrs, [...] x-cigarette smoker S he was born in [place], [place]. She was in November 2019. 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 Her children are local. She has two healthy grandchildren. * Medications: T trae Lisinopril 40 MG Tablet TAKE 1 TABLET BY MOUTH EVERY DAY , Taking Atorvastatin Calcium 10 MG Tablet TAKE 1 TABLET BY MOUTH EVERY DAY , Taking [place] 3 1000 MG Capsule 1 capsule Orally Once a day , Taking Osteo Bi-Flex Joint Shield - Tablet as directed Orally , Taking Vision Formula - Tablet as directed Orally , Taking Cyclobenzaprine HCl 5 MG Tablet 1 tablet twice a day , Taking Citalopram Hydrobromide 20 MG Tablet 1 tablet Orally Once a day , Taking Citalopram Hydrobromide 10 MG Tablet TAKE 1 TABLET BY MOUTH EVERY DAY , Taking Ibuprofen 800 MG Tablet TAKE 1 TABLET BY MOUTH 3 TIMES A DAY WITH FOOD OR MILK Orally every 8 hrs As needed, Medication List reviewed and reconciled with the patient * Allergies: D ust Mites, Pollen, Adhesive. Objective: * Vitals: * Examination: G eneral Examination: GENERAL APPEARANCE: p leasant, well nourished, well developed, in no acute distress, calm and relaxed. HEAD: a traumatic, normocephalic. EYES: e jeanine, [...] sounds normal, no ascites, no organomegaly, no mass. RECTAL EXAM: n ot examined. MUSCULOSKELETAL: e xtremities unremarkable, no clubbing, cyanosis or edema. PERIPHERAL PULSES: n ormal. NEUROLOGIC: a lert and oriented, cranial nerves 2-12 grossly intact, deep tendon reflexes 2+ symmetrical, motor strength normal upper and lower extremities, sensory exam intact. PSYCH: a lert, oriented. Assessment: * Assessment: 1. F ormer smoker - Z87.891 N otes :She is highly motivated not to smoke. She has a plan to prevent relapse in times of stress and illness. Plan: * Treatment: 2. O thers Continue Ibuprofen Tablet, 800 MG, TAKE 1 TABLET BY MOUTH 3 TIMES A DAY WITH FOOD OR MILK, Orally, every 8 hrs As needed; C ontinue Lisinopril Tablet, 40 MG, TAKE 1 TABLET BY MOUTH EVERY DAY; Continue Atorvastatin Calcium Tablet, 10 MG, TAKE 1 TABLET BY MOUTH EVERY DAY; C ontinue [place] 3 Capsule, 1000 MG, 1 capsule, Orally, Once a day; C ontinue Osteo Bi-Flex Joint Shield Tablet, -, as directed, Orally; C ontinue Vision Formula Tablet, -, as directed, Orally; C ontinue Cyclobenzaprine HCl Tablet, 5 MG, 1 tablet twice a day; C ontinue Citalopram Hydrobromide Tablet, 20 MG, 1 tablet, Orally, Once a day. * Images: * The named appointment provid er may or may not be the originator of this progress note, and it is not deemed complete until electronically signed by the appointment provider. Sign off status: Pending * Provider: Karthik Ortiz MD Date: 0 06/02/2024 Generated for Stephen alicia/Allison/Gilma on: 0 12/01/2024 10:17 AM EDT History and Physical Notes * HPI (History of Present Illness) Category Sub-Category Detail Notes COVID-19 Screening Questions Have you had any new onset fever, chills, cough, congestion, sore throat, shortness of breath, muscle aches?: No Examination Category Sub-Category Detail Notes General Examination GENERAL APPEARANCE: pleasant , well nourished, well developed, in no acute distress, calm and relaxed HEAD: atraumatic, normocep halic EYES: eomi, perrla, anicte kee, conjugate EARS: normal NOSE: septum intact NECK/THYROID: no jugular venous di stention, no carotid bruit, thyroid normal HEART: no clicks, gallops, murmurs, or rubs, regular rhythm, S1, S2 normal, no s3, or vascular bruits LUNGS: clear to auscultatio n ABDOMEN: bowel sounds normal, no ascites, no organomegaly, no mass NEUROLOGIC: alert and oriented, cranial nerves 2-12 [...]
--- OUTSIDE RECORDS SUMMARY | 2024-06-14 06:45 | XMS_ITS ---
Author Organization aNvid Ortiz III, MD Address [address] [place] [address] [place] [address] Care Team Providers Care Pole Lift Operator Name Role Phone Navid Ortiz Primary Care Provider Allergies Allergen (clinical drug ingredient) Drug/Non Drug Allergy documented on EMR Reaction Allergy Type Onset Date Status Pollen Pollen Unknown Allergy Active Dust Mites Unknown Allergy Active Adhesive Unknown Allergy Active REASON FOR VISIT Hypertension, Obesity, Asthma, Hyperlipidemia, Arthritis left hip, Depression, Cerebellar ataxia Medications Medication SIG (Take, Route, Frequency, Duration) Notes Start Date End Date Status Citalopram Hydrobromide 20 MG 1 tablet Orally Once a day 02/03/2024 Active Osteo Bi-Flex Joint Shield - as directed Orally Active Vision Formula - as directed Orally Active Lisinopril 40 MG TAKE 1 TABLET BY JIMY TH EVERY DAY Active Atorvastatin Calcium 10 MG TAKE 1 TABLET BY MOUTH EVERY DAY Active Ibuprofen 800 MG TAKE 1 TABLET BY MOUTH 3 TIMES A DAY WITH FOOD OR MILK Orally every 8 hrs As needed Active [place] 3 1000 MG 1 capsule Orally Onc e a day Active Social History Tobacco Use: Social History Observation Description Date Details (start date - stop date) Former Smoker NA - NA Sex Assigned At : Social History Observation Description Sex Assigned At Female Tobacco Use/Smoking Question Answer Notes Patient is a former smoker How long has it been since you last smoked? > 10 years Additional Findings: Tobacco Non-User Ex-cigaret te smoker Vital Signs Temperature 97.0 degrees Fahrenheit 06/15/19 25 Blood pressure systolic 127 mm Hg 06/15/19 25 Blood pressure diastolic 79 mm Hg 025 Heart Rate 88 /min 06/14/2024 Height 65 in 06/14/2024 Weight 195 lbs 06/14/2024 BMI 32.45 kg/m2 06/14/2024 Encounters Encounter Location Date Provider Diagnosis Navid Ortiz III, MD [address] [place] [address] [place] [address] 06/14/2024 Navid Ortiz Former smoker Z87.89 1 ; Obesity (BMI 30-39.9) E66.9 ; Hyperlipidemia, unspecified hyperlipidemia type E78.5 ; Environmental allergies Z91.09 and Pain in left hip M25.552 Assessments Encounter Date Diagnosis (ICD Code) Assessment Notes Treat ment Notes Treatment Clinical Notes 06/14/2024 Former smoker (ICD-1 0 - Z87.891) She is highly motivated not to smoke. She has a plan to prevent relapse in times of stress and illness. 06/14/2024 Obesity (BMI 30-39.9 ) (ICD-10 - E66.9) Her body mass index is 32. She has lost 2 pounds. We have discussed her weight reduction strategy. She will lose weight at a rate of one half pound per week through diet restricted in fat calories and sodium. 06/14/2024 Hyperlipidemia, unspecified hyperlipidemia type (ICD-10 - E78.5) A comprehensive database with a fasting lipid profile has been ordered. 06/14/2024 Environmental allergies (ICD-10 - Z91.09) She reports mild allergies. During pollen season. She is asymptomatic at this time. 06/14/2024 Pain in left hip (ICD-10 - M25.552) She has decided not to have injections in the left hip. I have discussed physical therapy at length with her. She will decide. Plan Of Treatment Medication Medication Name Sig Start Date Stop Date Notes Citalopram Hydrobromide 20 MG 1 tablet Orally Once a day 1 04/04/2023 Osteo Bi-Flex Joint Shield - as directed Orally Vision Formula - as directed Orally Lisinopril 40 MG TAKE 1 TABLET BY JIMY TH EVERY DAY Atorvastatin Calcium 10 MG TAKE 1 TABLET BY MOUTH EVERY DAY Ibuprofen 800 MG TAKE 1 TABLET BY JIMY TH 3 TIMES A DAY WITH FOOD OR MILK Orally every 8 hrs [place] 3 1000 MG 1 capsule Orally Once a day Pending Test Test Name Order Date PROFILE, FASTING (COMPREHENSIVE METABOLI C) 06/14/2024 CBC w DIFF 06/14/2024 Lipid Panel 06/14/2024 Next Appt Details Follow Up: As Scheduled, Shahnaz son: Annual Exam Provider Name:Navid Quinnrne, 02/09/2025 10:00:00 AM, [address] [place] [address] [address] VEN[address], [place], [address], Progress Notes * Mita CABRERA EDOB:1950 (73 yo F)Acc No.[id number]:06/14/2024 Progress Notes Patient: Mita ALEXANDER Provider: Karthik Ortiz MD :1950 A ge:73 Y S ex:Female Date:06/14/2024 Address:[address] [place] [address] [phone] Subjective: * Chief Complaints: * H ypertensionObesityAsthmaHyperlipidemiaArthritis left hipDepressionCerebellar ataxia * HPI: C OVID-19 Screening: S he returns for a scheduled visit. She has been to rehabilitation medicine and offered cortisone injections in the left hip. She is concerned about deterioration of the cartilage and therefore declined to undergo the procedure. She continues to have pain in the left hip that impairs her walking. She has had no asthma. She has had no manifestations of allergies. She is not smoking tobacco.She has been scheduled later this year for dental implant surgery.? She has been compliant with her medications.She wants to discontinue her citalopram. We have discussed a tapering schedule over several weeks. Questions H ave you had any new onset fever, chills, cough, congestion, sore throat, shortness of breath, muscle aches? N o * ROS: G eneral/Constitutional: pain L eft hip with weightbearing. C hills d enies.?Fatigue a dmits. F ever d enies. E NT: Decreased hearing d enies. R espiratory: Cough d enies. C ardiovascular: Chest pain with exertion d enies. D yspnea on exertion?denies. S hortness of breath d enies. G astrointestinal: Constipation o ccasional. D ecreased appetite d enies. D iarrhea d enies. H eartburn d enies. N ausea d enies. R ectal bleeding [...] P sychiatric: Depressed mood w hich is mild. * Medical History: * Surgical History: H ysterectomy for benigh mass 1998gastric bypass 1999choleycystectomy 1989cataract surgery 2017No history * Hospitalization/Major Diagno stic Procedure: N [...] x-cigarette smoker S he was born in [place], [place]. She was in November 2019. 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 Her children are local. She has two healthy grandchildren. * Medications: T akingIbuprofen 800 MG Tablet TAKE 1 TABLET BY MOUTH 3 TIMES A DAY WITH FOOD OR MILK Orally every 8 hrs As neededLisinopril 40 MG Tablet TAKE 1 TABLET BY MOUTH EVERY DAY Atorvastatin Calcium 10 MG Tablet TAKE 1 TABLET BY MOUTH EVERY DAY [place] 3 1000 MG Capsule 1 capsule Orally Once a day Osteo Bi-Flex Joint Shield - Tablet as directed Orally Vision Formula - Tablet as directed Orally Citalopram Hydrobromide 20 MG Tablet 1 tablet Orally Once a day Taking Ibuprofen 800 MG Tablet TAKE 1 TABLET BY MOUTH 3 TIMES A DAY WITH FOOD OR MILK Orally every 8 hrs As neededTaking Lisinopril 40 MG Tablet TAKE 1 TABLET BY MOUTH EVERY DAY Taking Atorvastatin Calcium 10 MG Tablet TAKE 1 TABLET BY MOUTH EVERY DAY Taking [place] 3 1000 MG Capsule 1 capsule Orally Once a day Taking Osteo Bi-Flex Joint Shield - Tablet as directed Orally Taking Vision Formula - Tablet as directed Orally Taking Citalopram Hydrobromide 20 MG Tablet 1 tablet Orally Once a day DiscontinuedCyclobenzaprine HCl 5 MG Tablet 1 tablet twice a day Citalopram Hydrobromide 10 MG Tablet TAKE 1 TABLET BY MOUTH EVERY DAY Medication List reviewed and reconciled with the patientDiscontinued Cyclobenzaprine HCl 5 MG Tablet 1 tablet twice a day Discontinued Citalopram Hydrobromide 10 MG Tablet TAKE 1 TABLET BY MOUTH EVERY DAY Medication List reviewed and reconciled with the patient * Allergies: D ust MitesPollenAdhesiveno[Allergies Verified] Objective: * Vitals: H t: 65, Wt:195, BMI:32.45, BP:127/79, HR:88, Temp:97.0, Wt-k.45. * Examination: G eneral Examination: GENERAL APPEARANCE: [...] LUNGS: c lear to auscultation . BREASTS: N ot examined. ABDOMEN: b owel sounds normal, no ascites, no organomegaly, no mass, centripital obesity. RECTAL EXAM: n ot examined. MUSCULOSKELETAL: e xtremities unremarkable, no clubbing, cyanosis or edema, Pain to range of motion of left hip. PERIPHERAL PULSES: n ormal. NEUROLOGIC: a lert and oriented, cranial nerves 2-12 grossly intact, deep tendon reflexes 2+ symmetrical, motor strength normal upper and lower extremities, sensory exam intact. PSYCH: a lert, oriented. Assessment: * Assessment: 1. O besity (BMI 30-39.9) - E66.9 (Primary) N otes :Her body mass index is 32. She has lost 2 pounds. We have discussed her weight reduction strategy. She will lose weight at a rate of one half pound per week through diet restricted in fat calories and sodium. 2 . F teddy smoker - Z87.891 N otes :She is highly motivated not to smoke. She has a plan to prevent relapse in times of stress and illness. 3 . H yperlipidemia, unspecified hyperlipidemia type - E78.5 N otes :A comprehensive database with a fasting lipid profile has been ordered. 4 . E nvironmental allergies - Z91.09 N otes :She reports mild allergies. During pollen season. She is asymptomatic at this time. 5 . P ain in left hip - M25.552 N otes :She has decided not to have injections in the left hip. I have discussed physical therapy at length with her. She will decide. Plan: * Treatment: 2. F hollandmer smoker L AB: PROFILE, FASTING (COMPREHENSIVE METABOLIC) L AB: CBC w DIFF L AB: Lipid Panel 3. H yperlipidemia, unspecified hyperlipidemia type L AB: PROFILE, FASTING (COMPREHENSIVE METABOLIC) L AB: CBC w DIFF L AB: Lipid Panel 4. O thers Continue Ibuprofen Tablet, 800 MG, TAKE 1 TABLET BY MOUTH 3 TIMES A DAY WITH FOOD OR MILK, Orally, every 8 hrs As needed; C ontinue Lisinopril Tablet, 40 MG, TAKE 1 TABLET BY MOUTH EVERY DAY; Continue Atorvastatin Calcium Tablet, 10 MG, TAKE 1 TABLET BY MOUTH EVERY DAY; C ontinue [place] 3 Capsule, 1000 MG, 1 capsule, Orally, Once a day; C ontinue Osteo Bi-Flex Joint Shield Tablet, -, as directed, Orally; C ontinue Vision Formula Tablet, -, as directed, Orally; C ontinue Citalopram Hydrobromide Tablet, 20 MG, 1 tablet, Orally, Once a day. * Procedure Codes: * Preventive Medicine: Counseling: C are goal follow-up plan: Counseling for abnormal BMI given Y es Above Normal BMI Follow-up D ietary management education, guidance, and counseling, Dietary needs education, Exercise promotion: strength training, Exercise promotion: stretching, Feeding regime, Giving encouragement to exercise, Lifestyle education regarding diet, Nutrition / feeding management, Nutrition therapy, Prescribed activity/exercise education, Prescribed diet education, Prescribed dietary intake, Special diet education, Weight monitoring , Intervention, Order not done: Medical or Other reason not done S moking/Tobacco Use Patient counseled on the dangers of tobacco use and urged to quit. 0 06/14/2024 * Follow Up: A s Scheduled (Reason: Annual Exam) * Images: * Sign off status: Completed true * Provider: Karthik Ortiz MD Date: 0 06/14/2024 Generated for Mahoganyi ravin/Allison/eTcarmenzasmitting on: 0 12/01/2024 10:19 AM EDT History [...] lesion s, anicteric PERIPHERAL PULSES: normal BREASTS: Not examined MUSCULOSKELETAL: extremities unremark able, no clubbing, cyanosis or edema, Pain to range of motion of left hip LYMPH NODES: no enlarged lymph no faye,spleen normal RECTAL EXAM: not examined PSYCH: alert, oriented ORAL CAVITY: normal, unremarkable
--- OUTSIDE RECORDS SUMMARY | 2024-09-09 10:32 | XMS_ITS ---
Author Organization Navid Ortiz III, MD Address [address] [place] [address] [place] [address] Care Team Providers Care Mannequin Maker Name Role Phone Navid Ortiz Primary Care Provider [phone] REASON FOR VISIT stated she is getting scooter on Friday Social History Sex Assigned At : Social History Observation Description Sex Assigned At Female Encounters Encounter Location Date Provider Diagnosis Navid Ortiz III, MD [address] [place] [address] [place] [address] 09/09/2024 Navid Ortiz Plan Of Treatment Next Appt Details Provider Name:Navid Ortiz, 02/09/2025 10:00:00 AM, [address] [place] [address] [place], [address], Progress Notes * Mita CABRERA EDOB:1950 (73 yo F)Acc No.[id number]:09/09/2024 Patient: Jacinto Mita LOPEZ :1950 A ge:73 Y S ex:Female Address:[facility], [address] * true * Date: Generated for Printi ng/Faxing/eTransmitting on: 0 12/01/2024 10:18 AM EDT
--- OUTSIDE RECORDS SUMMARY | 2024-12-01 10:19 | XMS_ITS | Clinical Summary ---
Author Organization [address] [facility] Address [address] [place] [address] Phone Care Team Providers Care Commutator Tester Name Role Phone Sara Ortiz MD Primary Care Provider [phone] Surgical History Surgery Date Site/Laterality Comments COLONOSCOPY 07/03 PROCEDURE: [place] COLONOSCOPY STOMA DX INCLUDING COLLJ SPEC SPX HYSTERECTOMY PROCEDURE: HISTORICAL HYSTERECTOMY; COMMENT: ROMERO BSO GASTRIC BYPASS PROCEDURE: GASTRIC BYPASS FOR OBESIT Medical History Medical History Date Comments Essential hypertension 08/28/2017 DX:Essent ial hypertension Obesity (BMI 30-39.9) 08/28/2017 DX:Obesity (BMI 30-39.9) Esophageal reflux 09/24/2005 DX:Esophageal reflux; COMMENT: Resolved after gastric bypass, previously on omeprazole, has not taken any years History of diabetes mellitus, type II 08/28/2017 DX:History of diabetes mellitus, type II; COMMENT: Resolved after gastric bypass Family History Medical History Relation Name Comments Breast cancer Aunt Hypertension Father prostate with m ets Breast cancer Mother skin cancer Other: cervical cancer Paternal Grandmother Relation Name Status Comments Aunt Father Mother dx in 70s Paternal Grandmother Social History Tobacco Use Types Packs/Day Years Used Date Smoking Tobacco: Former Smokeless Tobacco: Former Alcohol Use Standard Drinks/Week Comments Yes 0 (1 standard drink = 0.6 oz pur e alcohol) Comments Unknown Sex and Gender Information Value Date Recorded Sex Assigned at Female 06/18/2024 9:23 AM EDT Legal Sex Female 11:00 PM EST Gender Identity Female 06/18/2024 9:23 AM EDT Sexual Orientation Straight 06/18/2024 9: 23 AM EDT Obstetrics History Plan of Treatment Health Maintenance Due Date Last Done Comments Diabetes: Annual GFR (Glomerular Filtration Rate) 1950 Diabetes: Annual Foot Exam 12/24/1961 Diabetes: Annual Retina Eye Exam 12/24/1961 Zoster Vaccines (1 of 2) 12/24/2001 Breast Cancer Screening 03/15/2022 03/15/2020, 04/04 Depression Screening 03/31/2024 Cholesterol Screening (Lipid Panel) 06/17/2024 Colorectal Cancer Screening: Colonoscopy 06/17/2024 Diabetes: Annual Urine Albumin-Creatinine Ratio (uACR) 06/17/2024 Diabetes: Blood Sugar Control Test (HGBA1C) 06/17/2024 Falls Risk Assessment 06/17/2024 Hepatitis C Screening 06/17/2024 Hypertension/CHF/CAD Annual BMP Blood Test 06/17/2024 Medicare Annual Wellness Visit 06/17/2024 Social Influencers of Health Screening 06/17/2024 COVID-19 Vaccine ( season) 2024 02/11/2024, 01/15/2023, 02/05/2022, Additional history exists Influenza Vaccine (#1) 2024 , 01/15/2023, 02/05/2022, Additional history exists DTaP,Tdap,and Td Vaccines (3 - Td or Tdap) 01/15/2029 01/15/2019, 09/24/2005 Osteoporosis Screening (Bone Density Screening) 03/15/2030 03/15/2020, 01/08/2018 RSV Immunization Adult Patients Completed 01/15/2023 Pneumococcal Vaccine: 50+ Years Completed 02/11/2024, 03/06/2018 HIB Vaccines Aged Out No longer eligi ble based on patient's age to complete this topic HPV Vaccines Aged Out No longer eligi ble based on patient's age to complete this topic Hepatitis A Vaccines Aged Out No long er eligible based on patient's age to complete this topic Hepatitis B Vaccines Aged Out No long er eligible based on patient's age to complete this topic IPV Vaccines Aged Out No longer eligi ble based on patient's age to complete this topic MMR Vaccines Aged Out No longer eligi ble based on patient's age to complete this topic Meningococcal ACWY Vaccine Aged Out N o longer eligible based on patient's age to complete this topic Meningococcal B Vaccine Aged Out No l onger eligible based on patient's age to complete this topic RSV Immunization Patients Under 20 months Aged Out No longer eligible based on patient's age to complete this topic Varicella Vaccines Aged Out No longer eligible based on patient's age to complete this topic Procedures Procedure Name Priority Date/Time Associated Diagnosis Comments [facility] SCREENING DIGITAL Routine 03/15/2020 1:05 PM EST Encounter for screening mammogram for malignant neoplasm of breast [facility] DEXA AXIAL SKELETON Routine 03/15/2020 11:47 AM EST Age-related osteoporosis without current pathological fracture from Last 3 Months or Most Recently Relevant to Health Maintenance Results * [facility] SCREENING DIGITAL (03/15/2020 1:05 PM EST) Anatomical Region Laterality Modality Mammography 03/15/2020 10:0 1 AM EST Narrative 03/15/2020 1:05 PM EST [facility] Diagnostic Imaging Department [address] [place], [place] [id number] Patient: MALKAMITAHAKEEM KahnB./Age/Sex: 1950 - 69 - F Unit#: [id number] [facility]ing [facility] Ordering Physician: SARA ORTIZ MD [facility] Screening Digital - 03/15/20 - 1107 INDICATION: SCREENING COMPARISON: [facility] exam of 04/04/2018 TECHNIQUE: CC and MLO views of the breasts were obtained, using full field digital mammography with 3D tomosynthesis views in the MLO projection. A cleavage view was also obtained. 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 Mother with breast carcinoma diagnosed at age 50 reported FINDINGS: The breasts contain scattered fibroglandular tissues. No suspicious masses, suspicious microcalcifications, or areas of architectural distortion are identified. Rare benign-appearing breast calcifications are present bilaterally. There are no secondary signs of breast malignancy. Compared to the prior exam, no adverse interval change. IMPRESSION: No specific mammographic evidence of breast malignancy. Lack of an imaging correlate should not deter or delay biopsy of a clinically significant palpable finding. BI-RADS - Category 2 - Benign finding 3342F, 7025F Annual screening mammography is recommended. Patient entered into a reminder system with a target date for the next mammogram. [id number] / [id number]) , [id number] Dictating Physician: KALI MENDIETA MD Electronically Signed by: KALI MENDIETA MD Dic Date/Time: 03/15/20 4319 Sign date/Time: 03/15/20 1308 Procedure Note Kali Mendieta MD - 03/19/2022 [facility] Diagnostic Imaging Department [address] [place] [id number] Patient: MITA CABRERA./Age/Sex: 1950 - 69 - F Unit#: [id number] Location/Status: [facility] Mnemonic/Ordering Site: [facility] Ordering Physician: SARA ORTIZ MD [facility] Screening Digital - 03/15/20 - 1107 INDICATION: SCREENING COMPARISON: [facility] exam of 04/04/2018 TECHNIQUE: CC and MLO views of the breasts were obtained, using full field digital mammography with 3D tomosynthesis views in the MLO projection. A cleavageview was also obtained. 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 Mother with breast carcinoma diagnosed at age 50 reported FINDINGS: The breasts contain scattered fibroglandular tissues. No suspicious masses, suspicious microcalcifications, or areas ofarchitectural distortion are identified. Rare benign-appearing breast calcificationsare present bilaterally. There are no secondary signs of breast malignancy. Compared to the prior exam, no adverse interval change. IMPRESSION: No specific mammographic evidence of breast malignancy. Lack of an imaging correlate should not deter or delay biopsy of aclinically significant palpable finding. BI-RADS - Category 2 - Benign finding 3342F, 7025F Annual screening mammography is recommended. Patient entered into a reminder system with a target date for the next mammogram. [id number] / [id number]) , [id number] Dictating Physician: KALI MENDIETA MD Electronically Signed by: KALI MENDIETA MD Dic Date/Time: 03/15/20 2798 Sign date/Time: 03/15/20 0565 us Sara Ortiz MD IMG BI PROCEDURES Final Result * [facility] DEXA AXIAL SKELETON (03/15/2020 11:47 AM EST) Anatomical Region Laterality Modality Mammography 03/15/2020 9:59 AM EST Narrative 03/15/2020 11:47 AM EST [facility] Diagnostic Imaging Department [address] [place] [address] Patient: MITA CABRERA./Age/Sex: 1950 - 69 - F Unit#: [id number] Location/Status: [facility] Mnemonic/Ordering Site: [facility] Ordering Physician: SARA ORTIZ MD [facility] Dexa Axial Skeleton - 03/15/201107 HISTORY: The patient is a 69-year-old postmenopausal female with clinical concern for metabolic bone disease. FINDINGS: Dual energy x-ray absorptiometry of the lumbar spine and femurs is performed. The mean bone mineral density at L1-L4 (with the exclusion of L3) is 1.090 gm/cm2 which is 93% of that of young normals and 98% of that of age matched controls. This yields a T-score of -0.7 and a Z-score of -0.2 and there is therefore no evidence of osteoporosis or osteopenia here. The mean bone mineral density of the femurs bilaterally is 0.800 gm/cm2 which is 79% of that of young normals and 85% of that of age matched controls. This yields a T-score of -1.6 and a Z-score of -1.1 which is diagnostic of osteopenia. However, the T-score of the right femoral neck is -2.9 and that of the left femoral neck is -2.8 which is diagnostic of osteoporosis. IMPRESSION: 1. Osteoporosis. 2. FRAX analysis yields a 10-year probability of major osteoporotic fracture of 15.4% and a 10-year probability of hip fracture of 4.3%. Code 53539 Dictating Physician: CORTEZ SEWELL MD Electronically Signed by: CORTEZ SEWELL MD Dic Date/Time: 03/15/20 1146 Sign date/Time: 03/15/20 1147 Procedure Note Cortez Sewell MD - 03/19/2022 [facility] Diagnostic Imaging Department [address] [place], [place] [id number] Patient: MITA CABRERA./Age/Sex: 1950 - 69 - F Unit#: [id number] [facility]ing [facility]: [facility] Ordering Physician: SARA ORTIZ MD [facility] Dexa Axial Skeleton - 03/15/20 - 1108 HISTORY: The patient is a 69-year-old postmenopausal female withclinical concern for metabolic bone disease. FINDINGS: Dual energy x-ray absorptiometry of the lumbar spine and femursis performed. The mean bone mineral density at L1-L4 (with the exclusion ofL3) is 1.090 gm/cm2 which is 93% of that of young normals and 98% of that ofage matched controls. This yields a T-score of -0.7 and a Z-score of -0.2 andthere is therefore no evidence of osteoporosis or osteopenia here. The mean bone mineral density of the femurs bilaterally is 0.800 gm/ce5ddzou is 79% of that of young normals and 85% of that of age matched controls.This yields a T-score of -1.6 and a Z-score of -1.1 which is diagnostic of osteopenia. However, the T-score of the right femoral neck is -2.9 andthat of the left femoral neck is -2.8 which is diagnostic of osteoporosis. IMPRESSION: 1. Osteoporosis. 2. FRAX analysis yields a 10-year probability of major osteoporoticfracture of 15.4% and a 10-year probability of hip fracture of 4.3%. Code 94905 Dictating Physician: CORTEZ SEWELL MD Electronically Signed by: CORTEZ SEWELL MD Dic Date/Time: 03/15/20 1146 Sign date/Time: 03/15/20 1147 Sara Ortiz MD IMG BI PROCEDURES Final Result from Last 3 Months or Most Recently Relevant to Health Maintenance Insurance MEDICA[place] [employer] MED[place]VANTAGE Care Teams Commutator Tester Relationship Specialty Start Date End Date Sara Ortiz MD [address] [facility] [address] [place] [address] PCP - General Oncology 06/18/24
--- OUTSIDE RECORDS SUMMARY | 2024-12-01 10:19 | XMS_ITS | Patient Health Record ---
Author Organization Navid Ortiz III, MD Address [address] [place] [address] [place] [address] Care Team Providers Care Sports Journalist Name Role Phone Navid Ortiz Primary Care Provider Allergies Allergen (clinical drug ingredient) Drug/Non Drug Allergy documented on EMR Reaction Allergy Type Onset Date Status Pollen Pollen Unknown Allergy Active Dust Mites Unknown Allergy Active Adhesive Unknown Allergy Active Results Component Value Reference Range Notes Complete Blood Count Auto Di ff Reviewed date:12/21/2023 08:44:09 PM Interpretation: Performing Lab:[facility], [address] [place] [phone] Notes/Report: White Blood Count 7.5 4.8-10.8 X10*3/uL Red Blood Count 4.30 4.20-5.50 X10*6/uL Hemoglobin 13.5 12.0-16.0 g/dl Hematocrit 41.8 37.0-47.0 % Mean Corpuscular Volume 97.2 80.0-98.0 fL Mean Corpuscular Hemoglobin 31.4 27.0-33.0 pg Mean Corpuscular HGB Conc 32.3 31.0-35.0 g/dl Red Cell Distribution Width 13.2 11.0-16.0 % Platelet Count 243 160-400 X10*3/uL Mean Platelet Volume 11.0 9.4-12.3 fL Neutrophils Percent Auto 59.7 45-73 % Imm Gran Pct Auto 0.5 0.0-0.4 % Lymphocytes Percent Auto 28.6 20-40 % Monocytes Percent Auto 6.5 2-11 % Eosinophils Percent Auto 3.5 0-4 % Basophils Percent Auto 1.2 0-2 % NRBC Pct Auto 0.0 0.0-0.2 /100WBC Neutrophils Absolute Auto 4.5 2.0-8.3 x10*3/u L Imm Gran Abs Auto 0.04 0.00-0.03 X10*3/uL Lymphocytes Absolute Auto 2.2 1.2-4.9 X10*3/u L Monocytes Absolute Auto 0.5 0.1-1.2 X10*3/uL Eosinophils Absolute Auto 0.3 0.0-0.4 X10*3/u L Basophils Absolute Auto 0.1 0.0-0.2 X10*3/uL NRBC Abs Auto 0.000 0.0-0.012 X10*3/uL Comprehensive [employer]. Panel Fa st Reviewed date:12/21/2023 08:44:09 PM Interpretation: Performing Lab:[facility], [address] [place] [phone] Notes/Report: Sodium 143 135-145 mmol/L Potassium 4.3 3.3-5.1 mmol/L Chloride 108 96-108 mmol/L Carbon Dioxide 29 22-29 mmol/L Anion Gap 10 12-20 Blood Urea Nitrogen 22 9-16 mg/dL Creatinine 0.69 0.5-1.4 mg/dL Estimated Glomerular Filt Rate > 60 NOTE: For -[place] individuals, multiply the result by 1.210. Chronic Kidney Disease: Estimated GFR < 60 mL/min/1.73m2 Severe Kidney Disease: Estimated GFR < 15 mL/min/1.73m2 Glucose Fasting 131 60-99 mg/dL A fasting glucose of 126 mg/dl or greater on more than one occasion is considered diagnostic of diabetes. Calcium 9.3 8.4-10.2 mg/dL Bilirubin Total 0.4 0.0-1.0 mg/dL Aspartate Amino Transferase 23 5-31 U/L Alanine Aminotransferase 32 0-31 U/L Total Protein 7.0 6.5-8.0 g/dL Albumin Level 4.3 3.5-5.0 g/dL Alkaline Phosphatase 82 39-117 U/L Lipid Panel Reviewed date:12/21/2023 08:44:09 PM Interpretation: Performing Lab:[facility], [address] [place] [phone] Notes/Report: Triglycerides 90 <150 mg/dL Desirable Triglyceride: less than 150 mg/dL Borderline High Triglyceride 150-199 mg/dL High Triglyceride: 200-499 mg/dL Very High Triglyceride: greater than or equal to 5OO mg/dL Cholesterol 186 <200 mg/dL Desirable Cholesterol: less than 200 mg/dL Borderline High Cholesterol: 200-239 mg/dL High Cholesterol: greater than 239 mg/dL LDL Cholesterol Calculated 101 <100 mg/dL Desirable LDL: less than 100 mg/dL Near Optimal/Above Optimal LDL: 110-129 mg/dL Borderline High LDL: 130-159 mg/dL High LDL: 160-189 mg/dL Very High LDL: greater than or equal to 190 mg/dL HDL Cholesterol 67 >40 mg/dL Desirable HDL: greater than 40 mg/dL Note: This HDL assay may give artificially low results in patients with liver disease. Vitamin B12 Reviewed date:12/21/2023 08:44:09 PM Interpretation: Performing Lab:[facility], [address] [place] [phone] Notes/Report: Vitamin B12 > 2000 200-900 pg/mL NORMAL 200-900 PG/ML INDETERMINATE 160-199 PG/ML DEFICIENT < 160 PG/ML Thyroid Stimulating Hormone Reviewed date:12/21/2023 08:44:09 PM Interpretation: Performing Lab:[facility], [address] [place] [phone] Notes/Report: Thyroid Stimulating Hormone 1.58 0.32-4.0 uIU/ mL TSH 3rd Generation ([facility]) Reason For Referral Reason Evaluate and Treat Neoplasm Right Upper Lip ? Nodular BCC vs Benign Diagnosis 1 Lesion of face (L98. 9) Referral Organization Navid Ortiz III, MD Referring Provider First Name Navid Referring Provider Last Name Angel Referring Provider Speciality Internal M edicine Referred Provider [facility] Referred Provider Specialty Dermatology General Notes Sandy Lanza 02/04/2024 10:59:08 AM >Patient would like for office to make the appointment for her, patient requesting Friday or mornings, Myla 02/06/2024 10:55:54 AM > referral faxed with progress Manjeet woods Suzanne CMA 02/13/2024 11:34:13 AM pt called stated [facility] called her and told her they do not take [facility] so pt is asking to be referred to another intern that takes [facility] Referral Priority Routine Reason evaluate and treatme nt neoplasm right upper lip ? nodular BCC vs Benign Diagnosis 1 Lip lesion (K13.0) Referral Organization Navid Ortiz III, MD Referring Provider First Name Navid Referring Provider Last Name Angel Referring Provider Speciality Internal M edicine Referred Provider ROMELIA SIMONS Referred Provider Specialty Dermatology General Notes Sofia Burroughs [facility] 02/12 03:11:41 PM > ref/demo/progress note faxed to Dr simons office today . pt unable to go to [facility] due to insurance, Manjeet Sofia [facility] 02/19/2024 10:43:52 AM >LM for call back to see if they contacted patient with appt as of yet, Manjeet Sofia [facility] 02/19/2024 10:55:12 AM >Called Dr Simons office spoke to Katerine gaona pt appt with Cadence Wheeler PAC for 09/23/2024 at 9am [address] [facility] [address] [place] [address] appt information called and mailed to patient Referral Priority Routine Referral Appointment Date 09/23/2024 Medications Medication SIG (Take, Route, Frequency, Duration) Notes Start Date End Date Status Citalopram Hydrobromide 20 MG 1 tablet Orally Once a day 02/03/2024 Active Lisinopril 40 MG TAKE 1 TABLET BY JIMY TH EVERY DAY for 90 Active Osteo Bi-Flex Joint Shield - as directed Orally Active Vision Formula - as directed Orally Active Atorvastatin Calcium 10 MG TAKE 1 TABLET BY MOUTH EVERY DAY for 90 Active Liberty 3 1000 MG 1 capsule Orally Onc e a day Active Ibuprofen 800 MG TAKE 1 TABLET BY JIMY TH if needed Orally every 8 hrs for 90 days Active Immunizations Vaccine Route Administration Date Status Comme nts Influenza, quad IM Intramuscular 01/23/2021 Administered COVID PFIZER Unknown 07/13/2020 Administered COVID PFIZER Unknown 02/20/2021 Administered COVID PFIZER Unknown 08/03/2020 Administered COVID PFIZER Unknown 08/16/2021 Administered Flu-ccIIv3, p-free Unknown 03/28/2013 Administered Fluzone High-Dose (HD-IIV3) Unknown 12/23/2018 Administered FLuzone HD PF Unknown 01/15/2023 Administered Fluzone High-Dose (HD-IIV3) Unknown 02/11/2024 Administered FLuzone HD PF Unknown 02/05/2022 Administered Comirnaty Pfizer COVID-19 12+ Unknown 01/15/2023 Administered Comirnaty Pfizer COVID-19 12+ Unknown 02/11/2024 Administered Influenza Vaccine Afluria Unknown 03/09/2006 Administer ed PCV20 Unknown 02/11/2024 Administered Influenza Vaccine Afluria Unknown 01/09/2007 Administer ed RSV Adjuvant Unknown 01/15/2023 Administered COVID Pfizer Bivalent Unknown 02/05/2022 Administered Influenza Vaccine Afluria Unknown 01/24/2005 Administer ed PCV13 Unknown 03/06/2018 Administered Social History Tobacco Use: Social History Observation Description Date Details (start date - stop date) Former Smoker NA - NA Sex Assigned At : Social History Observation Description Sex Assigned At Female Tobacco Use/Smoking Question Answer Notes Patient is a former smoker How long has it been since you last smoked? > 10 years Additional Findings: Tobacco Non-User Ex-cigaret te smoker Alcohol Screen Question Answer Notes Did you have a drink containing alcohol in the p ast year? No Points 0 Interpretation Negative Problems Problem Type SNOMED Code ICD Code Onset Dates Problem Status W/U Status Risk Notes Problem 4711924 Former smoker (Z87.891) Active confirmed She is highly motivated not to smoke. She has a plan to prevent relapse in times of stress and illness. Problem Post-menopausal (Z78.0) Active confirmed I have ordered a bone mineral density test. I have referred her to the [facility] program at [facility] for routine reproductive care. Problem Pain of left hip joint (finding) (933224056667066) Pain in left hip (M25.552) Active confirmed She has decided not to have injections in the left hip. I have discussed physical therapy at length with her. She will decide. Problem Early complication of trauma (03764970) Other early complications of trauma, initial encounter (T79.8XXA) Active confirmed Problem 337227255 Obesity (BMI 30-39.9) (E66.9) Active confirmed Her body ma ss index is 32. She has lost 2 pounds. We have discussed her weight reduction strategy. She will lose weight at a rate of one half pound per week through diet restricted in fat calories and sodium. Problem Essential hypertension (26249188) Essential hypertension (I10) Active confirmed Her blood pressure is stable today at 131/78. No change in her regimen was made. Problem 259346579 Mild intermittent asthma without complication (J45.20) Active confirmed There was no sign of asthma today. She is doing well without allergies. Current therapy was continued. Problem 371636098 Environmental allergies (Z91.09) Active confirmed She reports mild allergies. During pollen season. She is asymptomatic at this time. Problem Hyperlipidaemia (56848500) Hyperlipidemia, unspecified hyperlipidemia type (E78.5) Active confirmed A comprehensive database with a fasting lipid profile has been ordered. 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 This has not been a significant problem in her life since diagnosis. He will be observed. Problem 003576582 Chronic depression (F32.A) Active confirmed At her request because of increasing feelings of depression but not of self-harm I increased her citalopram to 20 mg daily. Follow-up visit was arranged. Vital Signs Heart Rate 88 /min 06/14/2024 Temperature 97.0 degrees Fahrenheit 06/14/2024 Blood pressure diastolic 79 mm Hg 06/14/2024 Height 65 in 06/14/2024 Blood pressure systolic 127 mm Hg 06/14/2024 Weight 195 lbs 06/14/2024 BMI 32.45 kg/m2 06/14/2024 Encounters Encounter Location Date Provider Diagnosis Navid Ortiz III, MD [address] [place] [address] [address] [place] [address] 02/03/2024 Navid Ortiz Obesity (BMI 30-39.9 ) E66.9 ; Former smoker Z87.891 ; Hyperlipidemia, unspecified hyperlipidemia type E78.5 ; Essential hypertension I10 ; Mild intermittent asthma without complication J45.20 ; Environmental allergies Z91.09 ; Cerebellar ataxia G11.9 ; Pain in left hip M25.552 ; Left anterior knee pain M25.562 and Chronic depression F32.A Navid Ortiz III, MD [address] [place] [address] [address] [place] [address] 06/14/2024 Navid Ortiz Former smoker Z87.89 1 ; Obesity (BMI 30-39.9) E66.9 ; Hyperlipidemia, unspecified hyperlipidemia type E78.5 ; Environmental allergies Z91.09 and Pain in left hip M25.552 Navid Ortiz III, MD [address] [place] [address] [address] [place], [place] [address] 02/13/2024 Navid Ortiz III, MD [address] [place] [address] [address] [place] [address] 09/09/2024 Navid Ortiz Assessments Encounter Date Diagnosis (ICD Code) Assessment Notes Treat ment Notes Treatment Clinical Notes 02/03/2024 Former smoker (ICD-1 0 - Z87.891) She is highly motivated not to smoke. She has a plan to prevent relapse in times of stress and illness. 02/03/2024 Obesity (BMI 30-39.9 ) (ICD-10 - E66.9) She has voluntarily lost 16 pounds through diet and exercise. Her body mass index is now 32.78. Her blood pressure is stable. We recommend that she continue weight loss until her body mass index is in the normal range. We discussed diet and nutrition at length. 06/14/2024 Former smoker (ICD-1 0 - Z87.891) [...] diet restricted in fat calories and sodium. 02/03/2024 Hyperlipidemia, unspecified hyperlipidemia type (ICD-10 - E78.5) Her current fasting lipid profile is in the normal range. No change in her regimen was needed. She will continue to lose weight and consume a healthy diet. 06/14/2024 Hyperlipidemia, unspecified hyperlipidemia type (ICD-10 - E78.5) A comprehensive database with a fasting lipid profile has been ordered. 02/03/2024 Essential hypertension (ICD-10 - I10) Her blood pressure is stable today at 131/78. No change in her regimen was made. 06/14/2024 Environmental allergies (ICD-10 - Z91.09) She reports mild allergies. During pollen season. She is asymptomatic at this time. 02/03/2024 Mild intermittent asthma without complication (ICD-10 - J45.20) There was no sign of asthma today. She is doing well without allergies. Current therapy was continued. 06/14/2024 Pain in left hip (ICD-10 - M25.552) She has decided not to have injections in the left hip. I have discussed physical therapy at length with her. She will decide. 02/03/2024 Environmental allergies (ICD-10 - Z91.09) She [...] Follow-up visit was arranged. Plan Of Treatment Pending Test Test Name Order Date PROFILE, FASTING (COMPREHENSIVE METABOLI C) 06/14/2024 PROFILE, FASTING (COMPREHENSIVE METABOLI C) 07/05/2020 PROFILE, FASTING (COMPREHENSIVE METABOLI C) 03/08/2020 PROFILE, FASTING (COMPREHENSIVE METABOLI C) 08/23/2021 PROFILE, FASTING (COMPREHENSIVE METABOLI C) 02/03/2024 PROFILE, FASTING (COMPREHENSIVE METABOLI C) 01/23/2021 PROFILE, FASTING (COMPREHENSIVE METABOLI C) 05/24/2021 PROFILE, FASTING (COMPREHENSIVE METABOLI C) 10/18/2021 LIPID PANEL 07/05/2020 LIPID PANEL 03/08/2020 LIPID PANEL 08/23/2021 LIPID PANEL 01/23/2021 LIPID PANEL 05/24/2021 FREE T4 (FT4) 01/23/2021 TSH (THYROID STIMULATING HORMONE) 2020 VITAMIN B12 AND FOLATE 01/23/2021 CBC w DIFF 10/18/2021 CBC w DIFF 05/24/2021 CBC w DIFF 06/14/2024 CBC w DIFF 07/05/2020 CBC w DIFF 01/23/2021 CBC w DIFF 03/08/2020 CBC w DIFF 08/23/2021 ROUTINE CULTURE 03/08/2020 CBC WITH AUTO DIFF 02/03/2024 Lipid Panel 10/18/2021 Lipid Panel 06/14/2024 Lipid Panel 02/03/2024 Next Appt Details Provider Name:Navid Ortiz, 02/09/2025 10:00:00 AM, [address], [address], [place], [address], Insurance Providers Payer Name Payer Address Payer Phone Subscriber Number Group Number Insured Name Patient Relationship to Insured Coverage Start Date Coverage End Date [employer] [address] [place] [address] [id number] Mita Cabrera Self - patient is the insured MEDICAID [facility] [address] [place], [place] [id number] Mita Cabrera Self - patient is the insured MEDICARE [employer] [address] [place] [address] [id number] Mita Cabrera Self - patient is the insured Medical (General) History Medical History History ICD Code Hypertension I10 Obesity E66.9 allergies to pollen and dust childhood asthmma choleycystitis 1989 former smoker LMP Surgical History Surgery Date(Month/Year) No history cataract surgery 2018 choleycystectomy 1989 gastric bypass 1999 Hysterectomy for benigh mass 1998 Hospitalization History Reason Date(Month/Year) No history
== END 2024-12-01 09:31 | disposition home or self-care (01) ==
LOC: HO.MAMMO 09:30
PROVIDERS: PCP Internal Medicine Medical Oncology; Visit Provider Internal Medicine Medical Oncology
DX: Z12.31 Encounter for screening mammogram for malignant neoplasm of breast (principal)
CPT/HCPCS: 77063; 77067

== ENCOUNTER → 2024-12-01 10:15 | Outpatient (BNV) | payer MEDICARE, SELFPAY | PROVIDERS: PCP Internal Medicine Medical Oncology; Visit Provider Internal Medicine | DX: Z12.31 Encounter for screening mammogram for malignant neoplasm of breast (principal) | CPT/HCPCS: 77063; 77067 ==